=== PATIENT | female | born 1950 | race Caucasian/White ===

== ENCOUNTER 2018-08-12 10:05 | Observation (INO) ==
[2018-08-12] MEDS ORDERED: Isovue-370 500 ML BOTTLE IVP ONE (10:44)
[2018-08-12] MEDS ORDERED: 0.9 % Sodium Chloride 500 ML IVC ONE (10:47)
--- NOTE | 2018-08-12 11:23 | Emergency Department Note ---
Disposition Clinical Impression: Hyponatremia Pneumonia Qualifiers: Pneumonia type: due to unspecified organism Laterality: right Lung location: lower lobe of lung Qualified Code(s): J18.1 - Lobar pneumonia, unspecified organism Leukocytosis Qualifiers: Leukocytosis type: unspecified Qualified Code(s): D72.829 - Elevated white blood cell count, unspecified Disposition: Admitted As Inpatient Condition: Fair General Adult HPI - General Chief complaint: ED General Medical Stated complaint: coughing up blood Time Seen by Provider: 08/12/18 10:15 Source: patient, family Mode of arrival: ambulatory Limitations: no limitations Nursing Notes Reviewed: Yes Vital Signs Reviewed: Yes - History of Present Illness HPI Narrative: Ms. Corona is a 67-year old female who presents to the ED for evaluation of hemoptysis. She was evaluated in the ED early Friday morning, at which time she was diagnosed with pneumonia and started on antimicrobial therapy with levaquin. She reports that she has had right-sided low back pain that radiates up to her mid-back that is worse with cough. She states that she got up out of bed last night due to her back pain, and went to the couch. When she woke up this morning, she had a great deal of coughing with associated hemoptysis. She does have a plastic bag at the bedside, which contains multiple tissues with tammi blood present. She reports that her back pain has worsened and radiates into her right breast, particularly when coughing. She reports subjective chills, but de nies any overt fevers. She also reports abdominal pain associated with her cough, as well as increased sputum production. She denies any pain or swelling of the lower extremities, and has not recently had any long trips or prolonged immobilization. Pain Scale: 8 - Related Data Home Medications Medication Instructions Recorded Confirmed Amiloride/Hydrochlorothiazide 1 each PO DAILY 08/12/18 08/12/18 [Amiloride HCl-Hctz 5-50 mg Tab] Aspirin [Adult Aspirin] 81 mg PO DAILY 08/12/18 08/12/18 Calcium Carbonate/Vitamin D3 1 each PO DAILY 08/12/18 08/12/18 [Calcium 600 + Vit D Softgel] Carvedilol [Coreg] 6.25 mg PO BIDWM 08/12/18 08/12/18 Furosemide [Lasix] 10 mg PO DAILY 08/12/18 08/12/18 Glimepiride [Amaryl] 2 mg PO 0800 08/12/18 08/12/18 Lisinopril [Zestril] 5 mg PO DAILY 08/12/18 08/12/18 Multivitamin [Daily Multiple 1 each PO DAILY 08/12/18 08/12/18 Vitamin] [place]-3/Dha/Epa/Fish Oil [Fish Oil 2 each PO DAILY 08/12/18 08/12/18 1,000 mg Softgel] Omeprazole [PriLOSEC] 20 mg PO DAILY 08/12/18 08/12/18 Potassium Chloride [Klor-Con 10] 8 meq PO DAILY 08/12/18 08/12/18 Simvastatin [Zocor] 40 mg PO DAILY 08/12/18 08/12/18 Allergies Allergy/AdvReac Type Severity Reaction Status Date / Time cefdinir Allergy Diarrhea Verified 08/11/18 00:30 codeine Allergy Anaphylaxis Verified 08/11/18 00:30 All systems ED: reviewed and negative except as stated. Constitutional: Reports: chills. Denies: fever, weakness, weight change Eyes: Denies: eye pain, eye discharge, vision change Cardiovascular: Denies: chest pain, palpitations, dyspnea on exertion, edema, s yncope Respiratory: Reports: cough, hemoptysis, sputum production Gastrointestinal: Reports: abdominal pain. 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 history - Social History Smoking Status: Current every day smoker Smokeless Tobacco Status: No Alcohol use: Reports: occasionally Drug use: Reports: none Physical Exam - General Limitations: no limitations General appearance: alert, in no apparent distress - Head Head exam: atraumatic, normocephalic, normal inspection - Eye Eye exam: Present: normal appearance, PERRL, EOMI - ENT ENT exam: normal exam, normal oropharynx, mucous membranes moist - Neck Neck exam: Present: normal inspection, full ROM, trachea midline - Chest Chest inspection: Present: normal inspection, symmetric chest wall rise - Respiratory Respiratory exam: Present: other (coarse breath sounds bilaterally) - Expanded Respiratory Exam Location: decreased breath sounds: Right, Upper, Lower - Cardiovascular Cardiovascular exam: Present: regular rate, normal rhythm, normal heart sounds, +S1, +S2 - Abdominal Exam Abdominal exam: Present: soft, tenderness, hypoactive bowel sounds. Absent: distention, guarding, rebound, rigidity - Extremities Exam Extremities exam: Present: normal inspection, full ROM. Absent: tenderness, pedal edema - Back Exam Back exam: Present: normal inspection, full ROM, tenderness (Mild tenderness to palpation along the right thoracolumbar area) - Neurological Exam Neurological exam: Present: alert, oriented X3 - Psychiatric Psychiatric exam: Present: normal affect, normal mood - Skin Skin exam: Present: warm, dry, intact, normal color Course Vital Signs Temperature 98.5 F 08/12/18 10:06 Pulse Rate 114 08/12/18 10:06 Respiratory Rate 16 08/12/18 10:06 Blood Pressure 136/71 08/12/18 10:06 O2 Sat by Pulse Oximetry 99 08/12/18 10:06 Temperature 98.0 F 08/12/18 20:48 Pulse Rate 97 08/12/18 20:48 Respiratory Rate 16 08/12/18 20:48 Blood Pressure 118/63 08/12/18 20:48 O2 Sat by Pulse Oximetry 95 08/12/18 20:48 Oxygen Delivery Oxygen Delivery Room Air Medical Decision Making - [facility] Narrative Medical decision making narrative: Patient seen and evaluated at the bedside. Vital signs and recent medical records reviewed. At this time, concern for failed outpatient treatment of pneum onia vs. pulmonary embolism vs. underlying malignancy. We will obtain CTA of the chest to further evaluate. Disposition pending. CTA of the chest was concerning for a postobstructive pneumonia secondary to mass. Patient was admitted to the hospital with plan for bronchoscopy to further evaluate. Please see documentation of attending, Dr. Watts, for further ED course and disposition. - Lab Data Result diagrams: 08/12/18 11:05 08/12/18 11:04 Lab Results 08/12/18 08/12/18 08/12/18 Range/Units 11:04 11:04 11:05 WBC 23.4 H (4.3-11.1) K/mcL RBC 4.26 (3.82-4.97) M/mcL Hgb 12.4 (11.5-15.4) g/dL Hct 38.3 (35.3-44.9) % MCV 89.9 (83.0-100.0) fL MCH 29.1 (28.0-33.3) pg MCHC 32.4 (31.6-35.5) g/dL RDW 12.8 (11.5-14.5) % Plt Count 400 (140-400) K/mcL MPV 9.8 (9.4-12.4) fL PT (9.4-12.1) Seconds INR Sodium 126 L (136-145) mEq/L Potassium 3.8 (3.5-5.1) mEq/L Chloride 94 L (98-107) mEq/L Carbon Dioxide 24 (23-29) mEq/L BUN 16 (8-23) mg/dL Creatinine 0.59 L (0.60-1.20) mg/dL Est GFR ( Amer) > 60 (> 60) Est GFR (Non-Af Amer) > 60 (> 60) BUN/Creatinine Ratio 27 H (6-26) Glucose 339 H (70-105) mg/dL Calculated Osmolality 277 L (280-300) Lactic Acid 0.7 (0.5-2.2) mmol/L Calcium 8.8 (8.6-10.3) mg/dL 08/12/18 Range/Units 11:05 WBC (4.3-11.1) K/mcL RBC (3.82-4.97) M/mcL Hgb (11.5-15.4) g/dL Hct (35.3-44.9) % MCV (83.0-100.0) fL MCH (28.0-33.3) pg MCHC (31.6-35.5) g/dL RDW (11.5-14.5) % Plt Count (140-400) K/mcL MPV (9.4-12.4) fL PT 17.5 H (9.4-12.1) Seconds INR 1.6 Sodium (136-145) mEq/L Potassium (3.5-5.1) mEq/L Chloride (98-107) mEq/L Carbon Dioxide (23-29) mEq/L BUN (8-23) mg/dL Creatinine (0.60-1.20) mg/dL Est GFR ( Amer) (> 60) Est GFR (Non-Af Amer) (> 60) BUN/Creatinine Ratio (6-26) Glucose (70-105) mg/dL Calculated Osmolality (280-300) Lactic Acid (0.5-2.2) mmol/L Calcium (8.6-10.3) mg/dL
[2018-08-12 11:26] LABS: Hematocrit 38.3 % (35.3-44.9); Hemoglobin 12.4 g/dL (11.5-15.4); Mean Corpuscular HGB Conc 32.4 g/dL (31.6-35.5); Mean Corpuscular Hemoglobin 29.1 pg (28.0-33.3); Mean Corpuscular Volume 89.9 fL (83.0-100.0); Mean Platelet Volume 9.8 fL (9.4-12.4); Platelet Count 400 K/mcL (140-400); Red Blood Count 4.26 M/mcL (3.82-4.97); Red Cell Distribution Width 12.8 % (11.5-14.5)
[2018-08-12 11:44] LABS: BUN/Creatinine Ratio 27 (6-26); Blood Urea Nitrogen 16 mg/dL (8-23); Calcium 8.8 mg/dL (8.6-10.3); Carbon Dioxide 24 mEq/L (23-29); Chloride 94 mEq/L (98-107); Glucose 339 mg/dL (70-105); Osmolality,Calculated 277 (280-300); Potassium 3.8 mEq/L (3.5-5.1); Sodium 126 mEq/L (136-145); eGFR For Non-African Americans > 60 (> 60)
--- NOTE | 2018-08-12 11:55 | Emergency Department Note ---
Disposition Clinical Impression: Hyponatremia Pneumonia Qualifiers: Pneumonia type: due to unspecified organism Laterality: right Lung location: lower lobe of lung Qualified Code(s): J18.1 - Lobar pneumonia, unspecified organism Leukocytosis Qualifiers: Leukocytosis type: unspecified Qualified Code(s): D72.829 - Elevated white blood cell count, unspecified Disposition: Admitted As Inpatient Condition: Fair Time of Disposition: 13:38 General Adult HPI - General Chief complaint: ED General Medical Stated complaint: coughing up blood Time Seen by Provider: 08/12/18 10:15 Source: patient, family Mode of arrival: ambulatory Limitations: no limitations - History of Present Illness Pain Scale: 8 - Related Data Home Medications Medication Instructions Recorded Confirmed Amiloride/Hydrochlorothiazide 1 each PO DAILY 08/12/18 08/12/18 [Amiloride HCl-Hctz 5-50 mg Tab] Aspirin [Adult Aspirin] 81 mg PO DAILY 08/12/18 08/12/18 Calcium Carbonate/Vitamin D3 1 each PO DAILY 08/12/18 08/12/18 [Calcium 600 + Vit D Softgel] Carvedilol [Coreg] 6.25 mg PO BIDWM 08/12/18 08/12/18 Furosemide [Lasix] 10 mg PO DAILY 08/12/18 08/12/18 Glimepiride [Amaryl] 2 mg PO 0800 08/12/18 08/12/18 Lisinopril [Zestril] 5 mg PO DAILY 08/12/18 08/12/18 Multivitamin [Daily Multiple 1 each PO DAILY 08/12/18 08/12/18 Vitamin] [place]-3/Dha/Epa/Fish Oil [Fish Oil 2 each PO DAILY 08/12/18 08/12/18 1,000 mg Softgel] Omeprazole [PriLOSEC] 20 mg PO DAILY 08/12/18 08/12/18 Potassium Chloride [Klor-Con 10] 8 meq PO DAILY 08/12/18 08/12/18 Simvastatin [Zocor] 40 mg PO DAILY 08/12/18 08/12/18 Allergies Allergy/AdvReac Type Severity Reaction Status Date / Time cefdinir Allergy Diarrhea Verified 08/11/18 00:30 codeine Allergy Anaphylaxis Verified 08/11/18 00:30 Constitutional: Reports: chills. Denies: fever, weakness, weight change Eyes: Denies: eye pain, eye discharge, vision change Cardiovascular: Denies: chest pain, palpitations, dyspnea on exertion, edema, syncope Respiratory: Reports: cough, hemoptysis, sputum production Gastrointestinal: Reports: abdominal pain. 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 history - Social History Smoking Status: Current every day smoker Smokeless Tobacco Status: No Alcohol use: Reports: occasionally Drug use: Reports: none Physical Exam - General Limitations: no limitations General appearance: alert, in no apparent distress Course Vital Signs Temperature 98.5 F 08/12/18 10:06 Pulse Rate 114 08/12/18 10:06 Respiratory Rate 16 08/12/18 10:06 Blood Pressure 136/71 08/12/18 10:06 O2 Sat by Pulse Oximetry 99 08/12/18 10:06 Temperature 97.3 F L 08/12/18 19:49 Pulse Rate 89 08/12/18 19:49 Respiratory Rate 20 08/12/18 19:49 Blood Pressure 106/64 08/12/18 19:49 O2 Sat by Pulse Oximetry 98 08/12/18 19:49 Oxygen Delivery Oxygen Delivery Room Air Medical Decision Making - Medical Records Medical records reviewed: Yes I reviewed the patient's medical records. - Lab Data Lab results reviewed: Yes I reviewed the patient's lab results. Result diagrams: 08/12/18 11:05 08/12/18 11:04 Lab Results 08/12/18 08/12/18 08/12/18 Range/Units 11:04 11:04 11:05 WBC 23.4 H (4.3-11.1) K/mcL RBC 4.26 (3.82-4.97) M/mcL Hgb 12.4 (11.5-15.4) g/dL Hct 38.3 (35.3-44.9) % MCV 89.9 (83.0-100.0) fL MCH 29.1 (28.0-33.3) pg MCHC 32.4 (31.6-35.5) g/dL RDW 12.8 (11.5-14.5) % Plt Count 400 (140-400) K/mcL MPV 9.8 (9.4-12.4) fL PT (9.4-12.1) Seconds INR Sodium 126 L (136-145) mEq/L Potassium 3.8 (3.5-5.1) mEq/L Chloride 94 L (98-107) mEq/L Carbon Dioxide 24 (23-29) mEq/L BUN 16 (8-23) mg/dL Creatinine 0.59 L (0.60-1.20) mg/dL Est GFR ( Amer) > 60 (> 60) Est GFR (Non-Af Amer) > 60 (> 60) BUN/Creatinine Ratio 27 H (6-26) Glucose 339 H (70-105) mg/dL Calculated Osmolality 277 L (280-300) Lactic Acid 0.7 (0.5-2.2) mmol/L Calcium 8.8 (8.6-10.3) mg/dL 08/12/18 Range/Units 11:05 WBC (4.3-11.1) K/mcL RBC (3.82-4.97) M/mcL Hgb (11.5-15.4) g/dL Hct (35.3-44.9) % MCV (83.0-100.0) fL MCH (28.0-33.3) pg MCHC (31.6-35.5) g/dL RDW (11.5-14.5) % Plt Count (140-400) K/mcL MPV (9.4-12.4) fL PT 17.5 H (9.4-12.1) Seconds INR 1.6 Sodium (136-145) mEq/L Potassium (3.5-5.1) mEq/L Chloride (98-107) mEq/L Carbon Dioxide (23-29) mEq/L BUN (8-23) mg/dL Creatinine (0.60-1.20) mg/dL Est GFR ( Amer) (> 60) Est GFR (Non-Af Amer) (> 60) BUN/Creatinine Ratio (6-26) Glucose (70-105) mg/dL Calculated Osmolality (280-300) Lactic Acid (0.5-2.2) mmol/L Calcium (8.6-10.3) mg/dL - Radiology Data Radiology results reviewed: Yes I reviewed the patient's radiology results. Critical Care Time Critical Care Time: No Attestation Statement - Attestation Attestation: I examined this patient and my medical decision-making was reviewed with the CONTROL SYSTEMS SPECIALIST/PA/Advanced Practice Nurse/Resident Physician. I agree with the documented findings, disposition and treatment plan as described except to the extent set forth below. The patient does have a diagnosis of pneumonia was discharged in the hospital yesterday and I did review her record and now has pleuritic right-sided back pain radiating to her breasts and this is mid back and is somewhat tender with palpation but there is no sign of zoster or skin rash or swelling or erythema in this area. She does have hemoptysis or pulmonary embolism as well as untreated/inadequately treated pneumonia is another possibility as well as mass so a CTA is pending. Labs are also ordered. The patient will be admitted. 1155 I did review the EKG showing a paced rhythm with a rate of 110 beats per minutes and I did compare that to previous EKG. 1202 I did review the test results including CT showing a lobar pneumonia and a possible obstruction proximal and I did speak with the hospitalist Dr. Maldonado who accepts the patient for admission and I will also consult pulmonary and they are paged at this time. The patient is started on Zosyn and vancomycin for treatment failure pneumonia and will be admitted. Also does have hyponatremia. [address] Escamilla who will consult 1342 Did go back and speak with the patient again and informed her of the admission decision and the concern for possible malignancy and the pulmonary consult. 1517
[2018-08-12] MEDS ORDERED: Piperacillin/Tazobactam 4.5 GM in D5% in Water (Mini-Bag+) 100 ML IVPB ONE (13:01)
[2018-08-12] MEDS ORDERED: Piperacillin/Tazobactam 3.375 GM in 0.9 % Sodium Chloride Mini Bag 100 ML IVPB ONE (13:22)
--- NOTE | 2018-08-12 13:53 | Pulmonology Consult Note ---
Date of Encounter: 08/12/18 Time of Encounter: 13:52 Assessment and Plan (1) Hemoptysis Current Visit: Yes Status: Acute In conclusion this is a very pleasant 59-year-old woman who presented with hemoptysis secondary to pneumonia. I reviewed her CT scan it is unclear if she could have endobronchial lesion in the right lower lobe with postobstructive a telectasis/pneumonia or this could be mucus plugging or some other obstructive process given her smoking history she is at increased risk for lung cancer and recommend direct visualization. Hemoptysis Is submassive in nature at this time A bronchoscopy is recommended. The procedure , risks, benefits, complications, and expected outcomes have been reviewed. Benefits of diagnosis, as well as risks to include bleeding, infection, pneumothorax which may require surgical intervention, and in a small population. The patient is aware that sometimes test is nondiagnostic. Discussed with patient and agrees to proceed. In addition patient should be covered for typical community acquired organisms and recommend MRSA and nasal swab positive can start her on vancomycin as well. She does be treated for COPD exacerbation recommend one-time dose of Solu-Medrol to 125 mg followed by IV Solu-Medrol 40 mg 3 times a day. Has a known history of diabetes which is controlled with medicine but not insulin -recommend close monitoring and treatment of this by primary medicine service while on systemic glucocorticoids. Schedule bronchodilators DuoNeb's every 4 hours with every one hour albuterol as needed. Start Symbicort 160/4.52 puffs twice a day Blood cultures should be obtained and sputum culture if possible that also send for urine strep Legionella antigens. Check the INR and keep patient nothing by mouth. She does have evidence of hyponatremia and this may be part of a paraneoplastic syndrome if there is evidence of endobronchial lesion/cancer otherwise this may be related to infectious process and SIADH from vasopressin stimulation recommend further evaluation by primary team including urine and serum osmolalities TSH AND cortisol Thank you for the consultation (2) Pneumonia Current Visit: Yes Status: Acute Qualifiers: Pneumonia type: due to unspecified organism Laterality: right Lung location: lower lobe of lung Qualified Code(s): J18.1 - Lobar pneumonia, unspecified organism (3) COPD exacerbation Current Visit: Yes Status: Acute (4) Tobacco abuse Current Visit: Yes Status: Acute History of Present Illness Consult date: 08/12/18 Requesting physician: Ash Watts Reason for consult: pneumonia Chief complaint: Coughing Up Blood History of present illness: I was called to evaluate Ms. ramos for hemoptysis. The patient is a pleasant 67-year-old woman with a past medical history of tobacco abuse and COPD. She had presented within the last 2 days to the emergency department complaining of chest pain chest x-ray was notable for pneumonia and she was stable and discharg ed from the emergency department on uin she returned today after she had had increasing pain and cough that was productive of blood. She states that she had about a tablespoon of bright red blood and that she had several bouts 4 episodes in total of blood mixed with sputum. This was earlier this morning and she has had no further episodes since. Patient's is a long-time heavy smoker 1 pack a day since around the age of 19 no personal history of malignancy no family history of lung malignancy and no exposure to exotic pets. No sick contacts travel drug abuse or ethanol abuse. Denies any nausea vomiting diarrhea dizziness new weakness or slurred speech. Denies any epistaxis hematuria or blood from the stool or dark stools Past Med Surg Social Fam HX - Past Medical History Medical history: diabetes, hyperlipidemia, hypertension Additional medical history: irregular heart beat Psychiatric history: no psych history - Social History Smoking Status: Current every day smoker Smokeless Tobacco Status: No Alcohol use: occasionally Drug use: none - Family History Mother History Unknown: Yes Medications and Allergies Amiloride/Hydrochlorothiazide [Amiloride HCl-Hctz 5-50 mg Tab] 1 each PO DAILY 08/12/18 [History] Aspirin [Adult Aspirin] 81 mg PO DAILY 08/12/18 [History] Calcium Carbonate/Vitamin D3 [Calcium 600 + Vit D Softgel] 1 each PO DAILY 08/12/18 [History] Carvedilol [Coreg] 6.25 mg PO BIDWM 08/12/18 [History] Furosemide [Lasix] 10 mg PO DAILY 08/12/18 [History] Glimepiride [Amaryl] 2 mg PO 0800 08/12/18 [History] Lisinopril [Zestril] 5 mg PO DAILY 08/12/18 [History] Multivitamin [Daily Multiple Vitamin] 1 each PO DAILY 08/12/18 [History] [place]-3/Dha/Epa/Fish Oil [Fish Oil 1,000 mg Softgel] 2 each PO DAILY 08/12/18 [History] Omeprazole [PriLOSEC] 20 mg PO DAILY 08/12/18 [History] Potassium Chloride [Klor-Con 10] 8 meq PO DAILY 08/12/18 [History] Simvastatin [Zocor] 40 mg PO DAILY 08/12/18 [History] Allergy/AdvReac Type Severity Reaction Status Date / Time cefdinir Allergy Diarrhea Verified 08/11/18 00:30 codeine Allergy Anaphylaxis Verified 08/11/18 00:30 All Systems: The remainder of the systems were reviewed and are negative Physical Examination Vital Signs: Vital Signs, Last 4 Hours Temp Pulse Resp BP Pulse Ox 08/12/18 11:06 103 16 134/66 95 08/12/18 10:06 98.5 F 114 16 136/71 99 General appearance: no acute distress ENT: oropharynx moist Neck: supple Auscultation: bilateral: wheezes (Expiratory wheezes noted bilaterally) Cardiovascular: regular rate and rhythm Gastrointestinal: normoactive bowel sounds, soft, non-tender Integumentary: normal Extremities: no cyanosis, no edema, no clubbing Musculoskeletal: no deformities normal mental status, non-focal exam mood appropriate Results - Laboratory Findings CBC and BMP: 08/12/18 11:05 08/12/18 11:04 Abnormal lab findings: Abnormal lab results WBC 23.4 K/mcL (4.3-11.1) H 08/12/18 11:05 Sodium 126 mEq/L (136-145) L 08/12/18 11:04 Chloride 94 mEq/L (98-107) L 08/12/18 11:04 Creatinine 0.59 mg/dL (0.60-1.20) L 08/12/18 11:04 BUN/Creatinine Ratio 27 (6-26) H 08/12/18 11:04 Glucose 339 mg/dL (70-105) H 08/12/18 11:04 Calculated Osmolality 277 (280-300) L 08/12/18 11:04 - Microbiology Findings Microbiology Findings: Microbiology, Last 48 Hours 08/12/18 11:13 Influenza Types A,B Antigen - Final Nasopharyngeal 08/12/18 11:04 Blood Culture - Preliminary Peripheral Venipuncture Culture is incubating and being continuously monitored for growth. Final report to follow. 08/12/18 11:04 Blood Culture - Preliminary Peripheral Venipuncture Culture is incubating and being continuously monitored for growth. Final report to follow. - Diagnostic Findings Chest x-ray: report reviewed, image reviewed - Clinical Findings Intake & Output: Intake & Output 08/11/18 08/12/18 08/12/18 23:59 07:59 15:59 Weight 69.853 kg Consult Discharge Plan - Plan
[2018-08-12] MEDS ORDERED: Ibuprofen 600 MG TABLET PO ONE (15:18)
[2018-08-12] MEDS ORDERED: Acetaminophen 325 MG TABLET PO PRN (15:36)
[2018-08-12] MEDS ORDERED: Naloxone 0.4 MG/ML INJ IVP PRN (15:36)
[2018-08-12] MEDS ORDERED: D5% in Water 1,000 ML IVC PRN (15:41)
[2018-08-12] MEDS ORDERED: Dextrose Gel 15 GM/37.5 ML TUBE PO PRN ×2 (15:41)
[2018-08-12] MEDS ORDERED: *HR* Dextrose 50 % in Water (Syg) 50 ML SYRINGE IVP PRN (15:41)
--- NOTE | 2018-08-12 15:44 | Internal Med History&Physical ---
Date of Encounter: 08/12/18 Time of Encounter: 15:00 Internal Medicine - H&P: HPI Chief complaint: Hemoptysis Admitted From: Home Plans for Post Hospital Care: Home History of present illness: Ms. Corona is a 67 year old female present to ER for hemoptysis since this morning. Past medical history is significant for diabetes, hypertension, hyperlipidemia, S/P PPM/AICD placement. Patient has right-sided pleural like chest pain over about one week. Patient also has cough with clear sputum for about 1 week. Patient denies fever, nausea, or vomiting. Patient has no shortness of breath. Patient came to ER yesterday and was considered pneumonia and given by mouth Levaquin. Since this morning, she has noticed blood in sputum, which is blood mixed with sputum. Patient denies on any anticoagulations except baby aspirin. Patient came to the emergency room again, CTA has been done, negative for PE but suspect right lung mass. Patient was admitted for further management. Past Med Surg Social Fam HX - Past Medical History Medical history: diabetes, hyperlipidemia, hypertension Additional medical history: irregular heart beat Psychiatric history: no psych history - Social History Smoking Status: Current every day smoker Smokeless Tobacco Status: No Alcohol use: occasionally Drug use: none - Family History Mother History Unknown: Yes Internal Medicine - H&P: Meds Amiloride/Hydrochlorothiazide [Amiloride HCl-Hctz 5-50 mg Tab] 1 each PO DAILY 08/12/18 [History] Aspirin [Adult Aspirin] 81 mg PO DAILY 08/12/18 [History] Calcium Carbonate/Vitamin D3 [Calcium 600 + Vit D Softgel] 1 each PO DAILY 08/12/18 [History] Carvedilol [Coreg] 6.25 mg PO BIDWM 08/12/18 [History] Furosemide [Lasix] 10 mg PO DAILY 08/12/18 [History] Glimepiride [Amaryl] 2 mg PO 0800 08/12/18 [History] Lisinopril [Zestril] 5 mg PO DAILY 08/12/18 [History] Multivitamin [Daily Multiple Vitamin] 1 each PO DAILY 08/12/18 [History] [place]-3/Dha/Epa/Fish Oil [Fish Oil 1,000 mg Softgel] 2 each PO DAILY 08/12/18 [History] Omeprazole [PriLOSEC] 20 mg PO DAILY 08/12/18 [History] Potassium Chloride [Klor-Con 10] 8 meq PO DAILY 08/12/18 [History] Simvastatin [Zocor] 40 mg PO DAILY 08/12/18 [History] Allergy/AdvReac Type Severity Reaction Status Date / Time cefdinir Allergy Diarrhea Verified 08/11/18 00:30 codeine Allergy Anaphylaxis Verified 08/11/18 00:30 All Systems PM: A 10-system review of systems was performed and is negative for pertinent findings except as documented above in the HPI. - Constitutional Vitals: Temp Pulse Resp BP Pulse Ox 98.5 F 101 18 129/55 98 08/12/18 10:06 08/12/18 15:12 08/12/18 15:12 08/12/18 15:12 08/12/18 15:12 Exam: Pt is AAO x 3, in NAD HEENT: NC/AT, PERRL Neck: Supple, no JVD, no LAD Lungs: CTA b/l Heart: S1S2, RRR Abd: Soft, nontender, BS present Ext: ROM wnl, no pedal edema Neuro: No focal deficit Internal Med - H&P Results - Labs CBC & Chem 7: 08/12/18 11:05 08/12/18 11:04 Labs: Short CBC 08/12/18 Range/Units 11:05 WBC 23.4 H (4.3-11.1) K/mcL Hgb 12.4 (11.5-15.4) g/dL Hct 38.3 (35.3-44.9) % Plt Count 400 (140-400) K/mcL [facility] 08/12/18 11:04 Sodium 126 L Potassium 3.8 Chloride 94 L Carbon Dioxide 24 BUN 16 Creatinine 0.59 L Glucose 339 H Calcium 8.8 - Impressions ITS Impressions Chest CTA 08/12/18 10:46 IMPRESSION: 1. No evidence of pulmonary embolism. 2. Complete atelectasis and consolidation of the right lower lobe. The appearance as above is suggestive of an infiltrative right perihilar mass with a possible endoluminal filling defect in the right bronchus intermedius. Consider further evaluation with endoscopy. 3. Trace right pleural effusion, which may be partially loculated. 4. Mild right hilar lymphadenopathy. D/ 08/12/2018 13:03:11 Darinel Hirsch MD / [email or web address] Interpreting Provider: Darinel Hirsch MD - Assessment and Plan (1) DVT prophylaxis Current Visit: Yes Status: Acute Assessment and plan: EPCDs, hold heparin for possible bronchoscope (2) Diabetes mellitus Current Visit: Yes Status: Acute Assessment and plan: Place patient on sliding scale insulin coverage Qualifiers: Diabetes mellitus type: type 2 Diabetes mellitus usp insulin use: without termite technician use Diabetes mellitus complication status: without complication Qualified Code(s): E11.9 - Type 2 diabetes mellitus without complications (3) Hypertension Current Visit: Yes Status: Acute Assessment and plan: Continue home medications Qualifiers: Hypertension type: essential hypertension Qualified Code(s): I10 - Essential (primary) hypertension (4) Hemoptysis Current Visit: Yes Status: Acute Assessment and plan: CTA has been done. Patient has pneumonia of right lower lobe. Suspect lung mass. It is likely considering patient long history of smoking. - Consult pulmonology - Patient may need bronchoscope, keep nothing by mouth from midnight. Follow pulmonology further recommendations. (5) Hyponatremia Current Visit: Yes Status: Acute Assessment and plan: Sodium 126. Highly suspect SIACH caused by lung malignancy. Patient was placed on IV saline. Place her on by mouth sodium pills as well (6) Pneumonia Current Visit: Yes Status: Acute Assessment and plan: Patient denies recent hospitalization. CAP vs postop obstructive pneumonia. - Continue IV Levaquin - Legionella and strep pneumo Ags - Influenza test negative in the emergency room - Will follow pulmonology further recommendation Qualifiers: Pneumonia type: due to unspecified organism Laterality: right Lung location: lower lobe of lung Qualified Code(s): J18.1 - Lobar pneumonia, unspecified organism - Time Spent With Patient Total time spent is greater than 50% in coordination of care (as documented) at patient's floor/unit and/or counseling patient: 40 minutes Greater than 35 minutes
[2018-08-12] MEDS ORDERED: 0.9 % Sodium Chloride 1,000 ML IVC SCH (15:45)
[2018-08-12 15:53] LABS: INR 1.6; Prothrombin Time 17.5 Seconds (9.4-12.1)
[2018-08-12] MEDS ORDERED: methylPREDNISolone 125 MG/2 ML VIAL IVP ONE (16:01)
--- NOTE | 2018-08-12 16:17 | Anesthesia Evaluation PreOp ---
<Clement Hutson - Last Filed: 08/12/18 16:52> Date of Encounter: 08/12/18 Time of Encounter: 16:13 - Past History Planned Operation: Bronchoscopy Cardiac History: Denies any Significant Hx (Hypertension Diabetes Hypercholesteremia History of Smoking Years 40 Packs 1 Family History of CAD History of CAD/PTCA Pacer/ICD Implant), HTN, Hyperlipidemia, Pacemaker/ICD (AICD interogated Today) Pulmonary History: Smoker, SAJAN Dx (CPAP 7), Other ([place]) Other Medical History: Diabetes Type II, Other (Hyponatremia) : No Alcohol Use: occasionally Drug use: none Medications and Allergies Amiloride/Hydrochlorothiazide [Amiloride HCl-Hctz 5-50 mg Tab] 1 each PO DAILY 08/12/18 [History] Aspirin [Adult Aspirin] 81 mg PO DAILY 08/12/18 [History] Calcium Carbonate/Vitamin D3 [Calcium 600 + Vit D Softgel] 1 each PO DAILY 08/12/18 [History] Carvedilol [Coreg] 6.25 mg PO BIDWM 08/12/18 [History] Furosemide [Lasix] 10 mg PO DAILY 08/12/18 [History] Glimepiride [Amaryl] 2 mg PO 0800 08/12/18 [History] Lisinopril [Zestril] 5 mg PO DAILY 08/12/18 [History] Multivitamin [Daily Multiple Vitamin] 1 each PO DAILY 08/12/18 [History] [place]-3/Dha/Epa/Fish Oil [Fish Oil 1,000 mg Softgel] 2 each PO DAILY 08/12/18 [History] Omeprazole [PriLOSEC] 20 mg PO DAILY 08/12/18 [History] Potassium Chloride [Klor-Con 10] 8 meq PO DAILY 08/12/18 [History] Simvastatin [Zocor] 40 mg PO DAILY 08/12/18 [History] Allergy/AdvReac Type Severity Reaction Status Date / Time cefdinir Allergy Diarrhea Verified 08/11/18 00:30 codeine Allergy Anaphylaxis Verified 08/11/18 00:30 - Meds/Allergy Pre-op Review Medications Reviewed: Yes Allergies Reviewed: Yes Beta Blockers on Current Med List: Yes If Beta Blockers taken, Date/Time (Last Dose taken): 16:10 08/12/2018 Anesthesia Results - Labs 08/12/18 11:05 08/12/18 11:04 - Imaging Additional studies: Echocardiogram Name: Evon Corona Date of Study: 03/05/2017 Date: 1950 Ht: 66.0 in Medical Record#: [id number] Age: 66 Wt: 160.0 lb Gender: Female BSA: 1.82 Order #: [id number] Location: [facility] OP Room #: Reading Physician: Mihaela Fonseca DO Pourer: Ashleigh Medina Ordering Physician: Catrachita Diaz MD, [facility] Primary Physician: Indications: nonischemic cardiomyopathy, LBBB, Coronary artery disease History Hypertension Diabetes Hypercholesteremia History of Smoking Years 40 Packs 1 Family History of CAD History of CAD/PTCA Pacer/ICD Implant 11/22/13 a Previous Echo was performed. Measurements: BP: 142/ 68 2D Normal Values RVIDd: 3.00 cm <2.7 cm IVSd: 1.60 cm 0.6 - 1.0 cm LVIDd: 3.30 cm 3.7 - 5.6 cm LVPWd: 1.20 cm 0.6 - 1.1 cm LVIDs: 2.60 cm 1.5 - 3.6 cm AO: 2.10 cm < 4.0 cm LA: 3.40 cm 2.0 - 4.0cm %FS: 21.20 cm >25 % LA volume: 27 Mitral Valve Peak E: .53 m/sec Peak A: .90 m/sec E/A Ratio: 0.6 Peak E' Lat Chalino: 6.04 cm/s Peak E' Med Chal[place]: 4.78 cm/s E/E' Lat Ratio: 8.7 E/E' Med Ratio: 11 Tricuspid Valve TV Regurg Peak Grad: 36.00mmHg TV Regurg Peak Chalino: 3.00m/sec Updated by Mihaela Fonseca on 03/05/2017 4:08:42 PM electronically signed on 03/05/2017 4:09:39 PM with status of Final Wall Motion Winkler: 1=Normal, 2=Hypokinesis, 3=Akinesis, 4=Dyskinesis, 5=Aneurysmal, 6=Hyperkinetic, X=Not Visualized (Blank)=Missing [id number].pdf^ProVation^FT^PDF EV/EV echocardiogram Impressions: LVEF 55%. Atypical septal motion consistent with bundle branch block. Asymmetric basal septal hypertrophy. No LVOTO. Mild left ventricular diastolic dysfunction. Normal right ventricular structure and function. Mild tricuspid regurgitation. Mild pulmonary hypertension. Anesthesia Exam Vital Signs/O2 Sat, Most Current Temp Pulse Resp BP Pulse Ox 98.5 F 101 18 143/78 98 08/12/18 10:06 08/12/18 15:12 08/12/18 15:48 08/12/18 15:48 08/12/18 15:12 Anesthesia Assess/Plan ASA Score: 3 Level of consciousness: Cooperative Anesthetic Plan: General Autologous Blood: Yes Monitoring Plan: Standard Monitors Recovery Plan: PACU <Margo Vaca - Last Filed: 08/12/18 18:24> Date of Encounter: 08/12/18 - Past History COVER MARKER History: Denies Any Significant HX Anesthesia Results - Labs 08/12/18 11:05 08/12/18 11:04 Anesthesia Exam Weight: 74 kg NPO (# of Hours): 6 hrs ... light meal - HEENT Pupil (Motor): Pupils equal, EOMI Mallampati: III Teeth: Normal Oral Opening: Greater than 3 (short TM distance) - COVER MARKER LOC: Oriented - Cardiac Rhythm: Regular Murmur: None - Pulmonary Breath Sounds: bilateral Clear (diminished breath sounds bilaterally) Respiratory Effort: Symmetrical
[2018-08-12] MEDS: Insulin LISPRO 300 UNITS/3 ML VIAL SQ SCH (16:27)
[2018-08-12] MEDS: Levofloxacin 750 MG/150 ML 750 MG/150 ML BAG IVPB SCH (16:27)
[2018-08-12] MEDS ORDERED: *HR* Propofol 200 MG/20 ML VIAL IVP ONE (16:51)
[2018-08-12] MEDS ORDERED: Propofol 500 MG/50 ML INFUS..BTL ONE (16:51)
[2018-08-12] MEDS ORDERED: Lidocaine -MPF 2% 2 ML VIAL ONE (16:55)
[2018-08-12] MEDS ORDERED: Lidocaine -MPF 4% 5 ML AMPUL ONE (16:55)
[2018-08-12] MEDS ORDERED: Ondansetron 4 MG/2 ML VIAL ONE (16:55)
[2018-08-12] MEDS ORDERED: Lidocaine Viscous Oral Soln 15 ML SOLUTION ONE (17:24)
[2018-08-12] MEDS ORDERED: Dexamethasone 4 MG/ML VIAL ONE (18:38)
[2018-08-12] MEDS ORDERED: *HR* EPINEPHrine 1 MG/10 ML SYRINGE INTRATRACH PRN (19:04)
--- NOTE | 2018-08-12 19:07 | Event Note ---
Date of Encounter: 08/12/18 Time of Encounter: 19:05 Status post bronchoscopy with the fungating tumor noted in the right bronchus intermedius. Biopsies were obtained as this is suspicious for malignancy patient had bleeding after procedure which terminated with use of topical epinephrine and thrombin. She is at high risk for further hemoptysis and even the massive hemoptysis over the next 12-24 hours. If coughs up more than 250 mL of bright red blood at any one time or over the next 12 hours she should be moved to the ICU and would likely need intubation. Treatment at this point would be thoracic surgery consultation or interventional radiology for embolization. We will follow-up on biopsy results which should be hopefully back in the next 48-72 hours.
[2018-08-12] MEDS ORDERED: *HR* EPINEPHrine 1 MG/10 ML SYRINGE ONE (19:09)
[2018-08-12] MEDS ORDERED: Albuterol 2.5 MG/3 ML NEBULIZER ONE (19:13)
[2018-08-12] MEDS ORDERED: Albuterol 2.5 MG/3 ML NEBULIZER IH ONE (19:14)
[2018-08-12] MEDS ORDERED: Dexamethasone 10 MG/ML VIAL PO ONE (19:27)
[2018-08-12] MEDS ORDERED: Benzonatate 100 MG CAPSULE PO PRN (19:29)
--- NOTE | 2018-08-12 19:54 | Anesthesia Evaluation Post Op ---
Date of Encounter: 08/12/18 Time of Encounter: 19:53 - Vital Signs Vital Signs: Last Vital Signs Temp 97.3 F L 08/12/18 19:29 Pulse 81 08/12/18 19:39 Resp 20 08/12/18 19:39 BP 103/57 08/12/18 19:39 Pulse Ox 99 08/12/18 19:39 - Lungs Lungs: Clear Ascult./Percussion - Airway Airway: Non-obstructed - Cardiovascular Regular Rate - Mental Status Mental Status: Alert & Oriented, Answers Appropriately - Pain Pain Scale: 2 - Nausea Vomiting Nausea Vomiting: Not Present - Hydration Hydration: NPO - Discharge PostOp Status: Transfer Patient to floor
[2018-08-12] MEDS ORDERED: Insulin LISPRO 300 UNITS/3 ML VIAL SQ SCH (21:00)
[2018-08-12 23:13] LABS: Source of Body Fluid RIGHT LOWER LOBE LUN
[2018-08-12 23:14] LABS: Appearance of Body Fluid Cloudy (Clear); Volume of Body Fluid 7 mL
[2018-08-12 23:36] LABS: Sodium, Urine 16.1 mEq/L
[2018-08-13 06:00] LABS: Basophils % 0.1 %; Hematocrit 33.8 % (35.3-44.9); Hemoglobin 11.3 g/dL (11.5-15.4); Immature Granulocytes % 0.8 % (0-4); Lymphocytes # 1.2 K/mcL (0.6-4.6); Lymphocytes % 6.3 %; Mean Corpuscular HGB Conc 33.4 g/dL (31.6-35.5); Mean Corpuscular Hemoglobin 28.7 pg (28.0-33.3); Mean Corpuscular Volume 85.8 fL (83.0-100.0); Monocytes # 0.3 K/mcL (0.0-1.3); Monocytes % 1.4 %; Neutrophils # 17.2 K/mcL (1.6-8.9); Platelet Count 473 K/mcL (140-400); Red Blood Count 3.94 M/mcL (3.82-4.97); Red Cell Distribution Width 12.6 % (11.5-14.5); Segmented Neutrophils % 91.4 %
[2018-08-13 06:22] LABS: BUN/Creatinine Ratio 29 (6-26); Blood Urea Nitrogen 18 mg/dL (8-23); Calcium 8.8 mg/dL (8.6-10.3); Carbon Dioxide 25 mEq/L (23-29); Chloride 98 mEq/L (98-107); Glucose 372 mg/dL (70-105); Magnesium 1.5 mg/dL (1.6-2.6); Osmolality,Calculated 295 (280-300); Potassium 3.8 mEq/L (3.5-5.1); Sodium 134 mEq/L (136-145); eGFR For Non-African Americans > 60 (> 60)
--- NOTE | 2018-08-13 06:36 | Pulmonology Progress Note ---
Date of Encounter: 08/13/18 Time of Encounter: 06:36 Assessment and Plan (1) Hemoptysis Current Visit: Yes Status: Acute This pleasant 67yo woman presented for increasing cough shortness of breath or chest pain and hemoptysis. CT scan was concerning for postobstructive pneumonia underwent bronchoscopy yesterday unfortunately this was notable for a malignant appearing lesion in the right bronchus intermedius. Given her smoking history very strong likelihood of primary lung cancer (NSCLC). I went over the findings with the patient and her in the room today and also explained that was only able to get to biopsies because of the amount of bleeding that was noted from the tumor hopefully this will be enough to make a diagnosis. I am hopeful that we can have a tissue diagnosis by tomorrow if diagnosis is still unclear after these biopsies have been evaluated I will refer to our interventional correctional officer lieutenant to repeat bronchoscopy and consider tumor debulking and further biopsies at that time. Complete staging can be done as an outpatient she may still end up being a surgical candidate. The standpoint of hemoptysis this appears to have resolved this time but she is at increased risk for having serious hemoptysis given the endobronchial lesion. 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 No further episodes of hemoptysis she was using codeine cough suppressant that is helping quite a bit in fact she feels nearing her baseline. Objective PUL Vital signs: Last Vital Signs Temp 97.7 F 08/13/18 04:05 Pulse 88 08/13/18 04:05 Resp 16 08/13/18 04:05 BP 123/78 08/13/18 04:05 Pulse Ox 94 08/13/18 04:05 General appearance: no acute distress ENT: oropharynx moist Neck: supple Auscultation: bilateral: wheezes (faint expiratory wheezes) Cardiovascular: regular rate and rhythm Gastrointestinal: normoactive bowel sounds, soft, non-tender Integumentary: normal Extremities: no cyanosis, no edema, no clubbing Musculoskeletal: no deformities normal mental status, non-focal exam mood appropriate Results - Laboratory Findings CBC and BMP: 08/13/18 05:37 08/13/18 05:37 PT/INR, D-dimer PT 17.5 Seconds (9.4-12.1) H 08/12/18 11:05 Abnormal lab findings: Abnormal lab results WBC 18.8 K/mcL (4.3-11.1) H 08/13/18 05:37 Hgb 11.3 g/dL (11.5-15.4) L 08/13/18 05:37 Hct 33.8 % (35.3-44.9) L 08/13/18 05:37 Plt Count 473 K/mcL (140-400) H 08/13/18 05:37 Neutrophils # 17.2 K/mcL (1.6-8.9) H 08/13/18 05:37 PT 17.5 Seconds (9.4-12.1) H 08/12/18 11:05 Sodium 134 mEq/L (136-145) L 08/13/18 05:37 BUN/Creatinine Ratio 29 (6-26) H 08/13/18 05:37 Glucose 372 mg/dL (70-105) H 08/13/18 05:37 POC Glucose 254 mg/dL (70-99) H 08/12/18 20:59 Magnesium 1.5 mg/dL (1.6-2.6) L 08/13/18 05:37 Urine Osmolality 230 mOsm/kg (300-1090) L 08/12/18 23:00 Fluid Appearance Cloudy (Clear) A 08/12/18 19:13 - Microbiology Findings Microbiology Findings: Microbiology, Last 48 Hours 08/12/18 23:00 Legionella Antigen - Final Urine,Random-Not Preferred Streptococcus pneumoniae Antigen (M - Final 08/12/18 19:13 Gram Stain - Final Right Lower Lobe Lung 08/12/18 11:13 Influenza Types A,B Antigen - Final Nasopharyngeal 08/12/18 11:04 Blood Culture - Preliminary Peripheral Venipuncture Culture is incubating and being continuously monitored for growth. Final report to follow. 08/12/18 11:04 Blood Culture - Preliminary Peripheral Venipuncture Culture is incubating and being continuously monitored for growth. Final report to follow. - Clinical Findings Intake & Output: Intake & Output 08/12/18 08/12/18 08/13/18 15:59 23:59 07:59 Intake Total 750 / 750 60 / 60 0 / 0 Output Total 400 / 400 1300 / 1300 Balance 750 / 750 -340 / -340 -1300 / -1300 Weight 69.853 kg 74 kg 74.2 kg Consult Discharge Plan - Plan Referrals: Zion Moss MD [Primary Care Provider] -
[2018-08-13 06:38] LABS: Thyroid Stimulating Hormone 0.19 mcIU/mL (0.340-5.600)
[2018-08-13] MEDS ORDERED: NON-FORMULARY MEDICATION 1 EACH EACH (Calcium Carbonate/Vitamin D3 [Calcium 600 + Vit D So PO SCH (09:00)
[2018-08-13] MEDS: Furosemide 20 MG TABLET PO SCH (10:03)
[2018-08-13] MEDS: Cholecalciferol (D-3) 1,000 UNIT TABLET PO SCH (10:03)
[2018-08-13] MEDS: Insulin LISPRO 300 UNITS/3 ML VIAL SQ SCH ×3 (10:04→16:55)
[2018-08-13] MEDS: Multivit/Ca/Min/Fe/FA 1 TAB TABLET PO SCH (10:04)
[2018-08-13] MEDS ORDERED: D5% in Water 1,000 ML IVC PRN (12:30)
[2018-08-13] MEDS ORDERED: Insulin DETEMIR 100 UNIT/ML X5UNITS SQ ONE (15:42)
--- NOTE | 2018-08-13 15:50 | Internal Med Progress Note ---
Hospitalist Progress Note - Encounter Date of Encounter: 08/13/18 Time of Encounter: 09:00 - Subjective Interval History: Pt has no further hemoptysis. Mild cough. No fever. - Exam Vitals: Temp Pulse Resp BP Pulse Ox 97.7 F 92 17 119/73 95 08/13/18 04:05 08/13/18 12:00 08/13/18 12:00 08/13/18 12:00 08/13/18 12:00 Exam: Pt is AAO x 3, in NAD HEENT: NC/AT, PERRL Neck: Supple, no JVD, no LAD Lungs: CTA b/l Heart: S1S2, RRR Abd: Soft, nontender, BS present Ext: ROM wnl, no pedal edema Neuro: No focal deficit - Assessment and Plan (1) DVT prophylaxis Current Visit: Yes Status: Acute Assessment and Plan: EPCDs, hold heparin b/o hemoptysis (2) Diabetes mellitus Current Visit: Yes Status: Acute Assessment and Plan: Place patient on sliding scale insulin coverage, pt also has steroid induced hyperglycemia, will add basal insulin. (3) Hypertension Current Visit: Yes Status: Acute Assessment and Plan: Continue home medications (4) Hemoptysis Current Visit: Yes Status: Acute Assessment and Plan: CTA has been done. Patient has pneumonia of right lower lobe. Suspect lung mass. It is likely considering patient long history of smoking. - Pulmonology consult appreciated. Had bronchoscope. Suspect malignancy. Biopsy sent. Pathology result is pending. - Continue closely monitor patient for further hemoptysis. (5) Hyponatremia Current Visit: Yes Status: Acute Assessment and Plan: Sodium improvedto 134. Highly suspect SIACH caused by lung malignancy. Cont flori se monitoring. (6) Pneumonia Current Visit: Yes Status: Acute Assessment and Plan: Patient denies recent hospitalization. CAP vs postop obstructive pneumonia. - Continue IV Levaquin - Legionella and strep pneumo Ags negative - Influenza test negative in the emergency room - Will follow pulmonology further recommendation, per pulmonology, will add prednisone by mouth. - Time Spent with Patient Total time spent is greater than 50% in coordination of care (as documented) at patient's floor/unit and/or counseling patient: 30 minutes 25 - 35 minutes Plan of Care Discussed with: patient Internal Medicine: Result - Labs CBC & Chem 7: 08/13/18 05:37 08/13/18 05:37 Labs: Short CBC 08/13/18 Range/Units 05:37 WBC 18.8 H (4.3-11.1) K/mcL Hgb 11.3 L (11.5-15.4) g/dL Hct 33.8 L (35.3-44.9) % Plt Count 473 H (140-400) K/mcL Neutrophils # 17.2 H (1.6-8.9) K/mcL BMP 08/13/18 05:37 Sodium 134 L Potassium 3.8 Chloride 98 Carbon Dioxide 25 BUN 18 Creatinine 0.62 Glucose 372 H Calcium 8.8 - ABG Interpretation ABG results: PT/INR, D-dimer PT 17.5 Seconds (9.4-12.1) H 08/12/18 11:05 Consult Discharge Plan - Plan Referrals: Zion Moss MD [Primary Care Provider] - (2) Diabetes mellitus Qualifiers: Diabetes mellitus type: type 2 Diabetes mellitus chcf insulin use: without intermediate accountant use Diabetes mellitus complication status: without complication Qualified Code(s): E11.9 - Type 2 diabetes mellitus without complications (3) Hypertension Qualifiers: Hypertension type: essential hypertension Qualified Code(s): I10 - Essential (primary) hypertension (6) Pneumonia Qualifiers: Pneumonia type: due to unspecified organism Laterality: right Lung location: lower lobe of lung Qualified Code(s): J18.1 - Lobar pneumonia, unspecified organism
[2018-08-13] MEDS: Levofloxacin 750 MG/150 ML 750 MG/150 ML BAG IVPB SCH (16:31)
[2018-08-13] MEDS ORDERED: Insulin LISPRO 300 UNITS/3 ML VIAL SQ SCH (21:00)
[2018-08-14 05:28] LABS: Basophils % 0.1 %; Red Cell Distribution Width 12.6 % (11.5-14.5)
[2018-08-14 05:30] LABS: Eosinophils # 0.2 K/mcL (0.0-0.6); Eosinophils % 0.6 %; Hematocrit 34.2 % (35.3-44.9); Hemoglobin 11.4 g/dL (11.5-15.4); Immature Granulocytes % 0.5 % (0-4); Lymphocytes # 3.2 K/mcL (0.6-4.6); Lymphocytes % 12.5 %; Mean Corpuscular HGB Conc 33.3 g/dL (31.6-35.5); Mean Corpuscular Hemoglobin 28.6 pg (28.0-33.3); Mean Corpuscular Volume 85.7 fL (83.0-100.0); Mean Platelet Volume 10.5 fL (9.4-12.4); Monocytes # 1.7 K/mcL (0.0-1.3); Monocytes % 6.5 %; Neutrophils # 20.5 K/mcL (1.6-8.9); Platelet Count 402 K/mcL (140-400); Red Blood Count 3.99 M/mcL (3.82-4.97); Segmented Neutrophils % 79.8 %
[2018-08-14 05:47] LABS: BUN/Creatinine Ratio 33 (6-26); Blood Urea Nitrogen 19 mg/dL (8-23); Calcium 9.3 mg/dL (8.6-10.3); Carbon Dioxide 29 mEq/L (23-29); Chloride 100 mEq/L (98-107); Glucose 161 mg/dL (70-105); Osmolality,Calculated 288 (280-300); Sodium 136 mEq/L (136-145); eGFR For Non-African Americans > 60 (> 60)
--- NOTE | 2018-08-14 06:42 | Pulmonology Progress Note ---
Date of Encounter: 08/14/18 Time of Encounter: 06:42 Assessment and Plan (1) Hemoptysis Current Visit: Yes Status: Acute This is secondary to likely endobronchial lesion which is malignant complicated by pneumonia and has resolved (2) Pneumonia Current Visit: Yes Status: Acute Agree with continuation of antimicrobials for a total of 7 days duration based upon clinical course can tailor antimicrobial to microbiological data from bronchoscopy which thus far has been negative Qualifiers: Pneumonia type: due to unspecified organism Laterality: right Lung location: lower lobe of lung Qualified Code(s): J18.1 - Lobar pneumonia, unspecified organism (3) COPD exacerbation Current Visit: Yes Status: Acute Prednisone 40 mg 5 days Start Symbicort 160/4.52 puffs twice a day Bronchodilators (duo nebs) every 6 hours with every hour albuterol as needed Smoking cessation counseling given (4) Malignant endobronchial neoplasm of left lung Current Visit: Yes Status: Acute Suspect pathology preliminary results should be due to day I will call pathology to confirm this if this is nondiagnostic will likely need to repeat bronchoscopy in which case she can stay overnight and this can be scheduled for tomorrow alternatively this can be scheduled as an outpatient (5) Tobacco abuse Current Visit: Yes Status: Acute Smoking cessation counseling given Patient will regardless need outpatient pulmonary follow-up in 1-2 weeks at the time of discharge Subjective Principal diagnosis: Hemoptysis Interval history: Ms Corona continues to improve no further episodes of hemoptysis she is been noted to be out of bed sitting in chair as well as ambulating without difficulty she is not requiring any supplemental oxygen Objective PUL Vital signs: Last Vital Signs Temp 97.8 F 08/14/18 04:00 Pulse 83 08/14/18 04:00 Resp 16 08/14/18 04:00 BP 162/77 08/14/18 04:00 Pulse Ox 98 08/14/18 04:00 General appearance: no acute distress Eyes: nonicteric ENT: oropharynx moist Effort: normal Auscultation: bilateral: clear Cardiovascular: regular rate and rhythm Gastrointestinal: normoactive bowel sounds, soft, non-tender Integumentary: normal Extremities: no cyanosis, no edema, no clubbing Musculoskeletal: no deformities normal mental status, non-focal exam mood appropriate Results - Laboratory Findings CBC and BMP: 08/14/18 05:00 08/14/18 04:59 PT/INR, D-dimer PT 17.5 Seconds (9.4-12.1) H 08/12/18 11:05 Abnormal lab findings: Abnormal lab results WBC 25.7 K/mcL (4.3-11.1) H 08/14/18 05:00 Hgb 11.4 g/dL (11.5-15.4) L 08/14/18 05:00 Hct 34.2 % (35.3-44.9) L 08/14/18 05:00 Plt Count 402 K/mcL (140-400) H 08/14/18 05:00 Neutrophils # 17.2 K/mcL (1.6-8.9) H 08/13/18 05:37 PT 17.5 Seconds (9.4-12.1) H 08/12/18 11:05 Creatinine 0.57 mg/dL (0.60-1.20) L 08/14/18 04:59 BUN/Creatinine Ratio 33 (6-26) H 08/14/18 04:59 Glucose 161 mg/dL (70-105) H 08/14/18 04:59 POC Glucose 334 mg/dL (70-99) H 08/13/18 20:56 Magnesium 1.5 mg/dL (1.6-2.6) L 08/13/18 05:37 TSH 0.190 mcIU/mL (0.340-5.600) L 08/13/18 05:37 Urine Osmolality 230 mOsm/kg (300-1090) L 08/12/18 23:00 Fluid Appearance Cloudy (Clear) A 08/12/18 19:13 - Microbiology Findings Microbiology Findings: Microbiology, Last 48 Hours 08/12/18 19:13 Fungal Culture - Preliminary Right Lower Lobe Lung Culture is incubating. 08/12/18 19:13 Gram Stain - Final Right Lower Lobe Lung 08/12/18 23:00 Legionella Antigen - Final Urine,Random-Not Preferred Streptococcus pneumoniae Antigen (M - Final 08/12/18 11:13 Influenza Types A,B Antigen - Final Nasopharyngeal 08/12/18 11:04 Blood Culture - Preliminary Peripheral Venipuncture Culture is incubating and being continuously monitored for growth. Final report to follow. 08/12/18 11:04 Blood Culture - Preliminary Peripheral Venipuncture Culture is incubating and being continuously monitored for growth. Final report to follow. - Clinical Findings Intake & Output: Intake & Output 08/13/18 08/13/18 08/14/18 15:59 23:59 07:59 Intake Total 0 / 0 120 / 120 Output Total 800 / 800 600 / 600 1100 / 1100 Balance -800 / -800 -600 / -600 -980 / -980 Weight 74.8 kg Consult Discharge Plan - Plan Referrals: Zion Moss MD [Primary Care Provider] -
[2018-08-14] MEDS: Insulin LISPRO 300 UNITS/3 ML VIAL SQ SCH ×2 (07:35→11:41)
[2018-08-14] MEDS: Multivit/Ca/Min/Fe/FA 1 TAB TABLET PO SCH (08:33)
[2018-08-14] MEDS: Furosemide 20 MG TABLET PO SCH (08:34)
[2018-08-14] MEDS: Cholecalciferol (D-3) 1,000 UNIT TABLET PO SCH (08:35)
[2018-08-14] MEDS ORDERED: predniSONE 20 MG TABLET PO SCH (09:00)
[2018-08-14 10:05] VITALS: BP 133/62
--- NOTE | 2018-08-14 11:32 | Discharge Summary ---
- NOTES TO OUTPATIENT PROVIDER Notes to Outpatient Provider: 1. F/U with pulmonology for biopsy result and further treatment. Orders not resulted at time of discharge: Pending orders 08/12/18 11:04 Culture,Blood [BC] Stat 08/12/18 19:13 AFB Culture, Respiratory [TB] Routine AFB Smear [TB] Routine Culture,Respiratory [RM] Routine Fungal Culture [MYC] Routine Gram Stain [RM] Routine Herpes Simplex PCR Body Fl Routine Legionella Culture [RM] Routine Resp.Virus Panel,Body Fl Routine Cytology [PTH] Routine Date of Encounter: 08/14/18 Time of Encounter: 10:00 - Discharge Diagnosis (1) DVT prophylaxis Priority: Secondary Status: Acute (2) Diabetes mellitus Priority: Secondary Status: Acute Qualifiers: Diabetes mellitus type: type 2 Diabetes mellitus nursing home insulin use: without medical terminologist use Diabetes mellitus complication status: without complication Qualified Code(s): E11.9 - Type 2 diabetes mellitus without complications (3) Hypertension Priority: Secondary Status: Acute Qualifiers: Hypertension type: essential hypertension Qualified Code(s): I10 - Essential (primary) hypertension (4) Hemoptysis Priority: Primary Status: Acute (5) Hyponatremia Priority: Secondary Status: Acute (6) Pneumonia Priority: Primary Status: Acute Qualifiers: Pneumonia type: due to unspecified organism Laterality: right Lung location: lower lobe of lung Qualified Code(s): J18.1 - Lobar pneumonia, unspecified organism Hospital course: Ms. Corona is a 67 year old female present to emergency room for hemoptysis. Chest x-ray shows right lower lobe pneumonia. CTA has been done, no PE, but suspect right lung tumor with obstructive pneumonia. Pulmonology consult saw patient, bronchoscope has been done and pathology is pending. She has no further hemoptysis for two days after bronchoscope. Patient feels back pain has improved after antibiotic treatment. No fever. Has minimal cough. WBC trended down but elevated again likely due to steroid use. Will continue antibiotic to finish 7 day course. Continue by mouth steroids to finish 5 day course. Add Symbicort. Patient will follow-up with pulmonology as outpatient. I have seen and examined the patient today. Patient is doing fine. Denies shortness of breath. Oxygen saturation 94-98% in room air. Denies further hemoptysis. Will DC patient home on by mouth antibiotics. Will hold home medication baby aspirin. Patient was advised to come to emergency room immediately if hemoptysis happen again. Discharge discussed with: patient - Time Spent with Patient Total time spent providing and/or coordinating discharge services: 40 minutes Time spent: Greater than 30 minutes - Discharge Medications Prescriptions: New predniSONE [PredniSONE] 40 mg PO DAILY 3 Days #6 tablet Continue Glimepiride [Amaryl] 2 mg PO 0800 Multivitamin [Daily Multiple Vitamin] 1 each PO DAILY Calcium Carbonate/Vitamin D3 [Calcium 600 + Vit D Softgel] 1 each PO DAILY Potassium Chloride [Klor-Con 10] 8 meq PO DAILY Furosemide [Lasix] 10 mg PO DAILY Omeprazole [PriLOSEC] 20 mg PO DAILY Simvastatin [Zocor] 40 mg PO QAM Carvedilol [Coreg] 6.25 mg PO BIDWM [place]-3/Dha/Epa/Fish Oil [Fish Oil 1,000 mg Softgel] 2 each PO DAILY Lisinopril [Zestril] 10 mg PO DAILY Triamterene/HCTZ 37.5/25mg [Dyazide] 1 tab PO QAM Discontinued Aspirin [Adult Aspirin] 81 mg PO DAILY Home Medications: Calcium Carbonate/Vitamin D3 [Calcium 600 + Vit D Softgel] 1 each PO DAILY 08/12/18 [History] Carvedilol [Coreg] 6.25 mg PO BIDWM 08/12/18 [History] Furosemide [Lasix] 10 mg PO DAILY 08/12/18 [History] Glimepiride [Amaryl] 2 mg PO 0800 08/12/18 [History] Multivitamin [Daily Multiple Vitamin] 1 each PO DAILY 08/12/18 [History] [place]-3/Dha/Epa/Fish Oil [Fish Oil 1,000 mg Softgel] 2 each PO DAILY 08/12/18 [History] Omeprazole [PriLOSEC] 20 mg PO DAILY 08/12/18 [History] Potassium Chloride [Klor-Con 10] 8 meq PO DAILY 08/12/18 [History] Simvastatin [Zocor] 40 mg PO QAM 08/12/18 [History] Lisinopril [Zestril] 10 mg PO DAILY 08/13/18 [History] Triamterene/HCTZ 37.5/25mg [Dyazide] 1 tab PO QAM 08/13/18 [History] Alcohol Antiseptic Pads [Alcohol Pads] 1 each ACHS #400 med..pad 08/14/18 [Rx] Blood Sugar Diagnostic [Glucose Test Strip] 1 each ACHS #400 strip 08/14/18 [Rx] Blood-Glucose Meter [Blood Glucose Monitoring] 1 each ACHS #1 each 08/14/18 [Rx] Budesonide/Formoterol 160/4.5 [Symbicort 160/4.5] 2 puff IH BIDR #1 bottle 08/14/18 [Rx] GuaiFENesin Liq [Robitussin Liq] 200 mg PO Q6HR #200 mls 08/14/18 [Rx] Lancets 1 each ACHS #400 each 08/14/18 [Rx] levoFLOXacin [Levaquin] 750 mg PO DAILY 5 Days #5 tablet 08/14/18 [Rx] predniSONE [PredniSONE] 40 mg PO DAILY 3 Days #6 tablet 08/14/18 [Rx] Allergies/Adverse Reactions: Allergy/AdvReac Type Severity Reaction Status Date / Time cefdinir Allergy Diarrhea Verified 08/11/18 00:30 codeine Allergy Anaphylaxis Verified 08/11/18 00:30 Date of admission: 08/12/18 14:53 Primary care physician: Zion Moss MD Consults: 08/12/18 13:30 Consult to Pulmonology [CONS] Stat Consulting Provider: [facility] Reason for Consult: lobar pna r/o mass Call Completed: No Discharging clinician: Gunnar Dee Anticipated date of discharge: 08/14/18 - Constitutional Vitals: Temp Pulse Resp BP Pulse Ox 98.4 F 94 16 133/62 94 08/14/18 10:02 08/14/18 10:02 08/14/18 10:02 08/14/18 10:02 08/14/18 07:09 Exam: Pt is AAO x 3, in NAD HEENT: NC/AT, PERRL Neck: Supple, no JVD, no LAD Lungs: CTA b/l Heart: S1S2, RRR Abd: Soft, nontender, BS present Ext: ROM wnl, no pedal edema Neuro: No focal deficit - Patient Status Disposition: Home, Self-Care Condition: Good Functional capacity at discharge: independent ambulation Overall status at discharge: patient is progressing back to baseline - Discharge Instructions Follow Up With: Zion Moss MD [Primary Care Provider] - 08/19/18 10:15 am Moe Quintero MD [Partnered Physician] - 08/20/18 2:45 pm - Diet and Activity Activity: increase activity as tolerated Diet: diabetic diet
--- NOTE | 2018-08-14 12:09 | Event Note ---
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 She will need outpatient oncology follow-up for staging and will also need Follow-up in pulmonary clinic thank you for this consultation
[2018-08-14] MEDS ORDERED: Insulin DETEMIR 100 UNIT/ML X5UNITS SQ SCH (21:00)
[2018-08-15 17:56] LABS: Influenza A PCR Body Fluid NOT DETECTED; Influenza B PCR Body Fluid NOT DETECTED; RVP Body Fluid Source BAL
[2018-08-16 10:04] LABS: RSV PCR Body Fluid NOT DETECTED
[2018-08-16 12:46] LABS: HSV Source BAL RLL
== END 2018-08-14 13:51 | disposition home or self-care (01) ==
LOC: EMEROOARM 10:05 → 2NENU 10:05 → SUATTDRO 14:53 → 2NENU 15:49
PROVIDERS: ADMIT Internal Medicine; ATTEND Internal Medicine

== ENCOUNTER 2019-04-06 12:11 | Inpatient (IN) ==
[2019-04-06] MEDS ORDERED: Pantoprazole 40 MG VIAL IVP ONE (12:47)
[2019-04-06] MEDS ORDERED: methylPREDNISolone 125 MG/2 ML VIAL IVP ONE (12:48)
[2019-04-06] MEDS ORDERED: Ipratropium/Albuterol Neb 3 ML IH ONE (12:48)
[2019-04-06] MEDS ORDERED: GI Cocktail 40 ML EACH PO ONE (13:19)
[2019-04-06] MEDS ORDERED: Lido/Epi/Tetra Gel 2 ML SYRINGE TP ONE (13:36)
[2019-04-06 15:00] LABS: Basophils # 0.1 K/mcL (0.0-0.2); Basophils % 0.7 %; Eosinophils # 0.2 K/mcL (0.0-0.6); Eosinophils % 1.4 %; Hematocrit 35.7 % (35.3-44.9); Hemoglobin 11.7 g/dL (11.5-15.4); Immature Granulocytes % 0.5 % (0-4); Lymphocytes # 1.9 K/mcL (0.6-4.6); Lymphocytes % 14.5 %; Mean Corpuscular HGB Conc 32.8 g/dL (31.6-35.5); Mean Corpuscular Hemoglobin 27.3 pg (28.0-33.3); Mean Corpuscular Volume 83.2 fL (83.0-100.0); Mean Platelet Volume 9.8 fL (9.4-12.4); Monocytes # 1.4 K/mcL (0.0-1.3); Monocytes % 10.7 %; Neutrophils # 9.2 K/mcL (1.6-8.9); Platelet Count 365 K/mcL (140-400); Red Blood Count 4.29 M/mcL (3.82-4.97); Red Cell Distribution Width 14.6 % (11.5-14.5); Segmented Neutrophils % 72.2 %; White Blood Count 12.8 K/mcL (4.3-11.1)
[2019-04-06 15:22] LABS: BUN/Creatinine Ratio 43 (6-26); Blood Urea Nitrogen 21 mg/dL (8-23); Calcium 9.2 mg/dL (8.6-10.3); Carbon Dioxide 28 mEq/L (23-29); Chloride 97 mEq/L (98-107); Glucose 106 mg/dL (70-105); Osmolality,Calculated 281 (280-300); Potassium 4.1 mEq/L (3.5-5.1); Sodium 134 mEq/L (136-145); Troponin I < 0.03 ng/mL (< 0.04); eGFR For African Americans > 60 (> 60); eGFR For Non-African Americans > 60 (> 60)
[2019-04-06] MEDS ORDERED: Naloxone 0.4 MG/ML INJ IVP PRN (15:59)
[2019-04-06] MEDS ORDERED: Ondansetron 4 MG/2 ML VIAL IVP PRN (15:59)
[2019-04-06] MEDS ORDERED: D5% in Water 1,000 ML IVC PRN (16:08)
[2019-04-06] MEDS ORDERED: Dextrose Gel 15 GM/37.5 ML TUBE PO PRN ×2 (16:08)
[2019-04-06] MEDS ORDERED: *HR* Dextrose 50 % in Water (Syg) 50 ML SYRINGE IVP PRN (16:08)
[2019-04-06] MEDS: Insulin LISPRO 300 UNITS/3 ML VIAL SQ SCH ×2 (18:28→20:53)
[2019-04-07 02:18] LABS: Basophils % 0.1 %; Eosinophils % 0.1 %; Hematocrit 35.5 % (35.3-44.9); Hemoglobin 11.7 g/dL (11.5-15.4); Immature Granulocytes % 0.7 % (0-4); Lymphocytes # 1.2 K/mcL (0.6-4.6); Lymphocytes % 12.4 %; Mean Corpuscular Hemoglobin 27.4 pg (28.0-33.3); Mean Corpuscular Volume 83.1 fL (83.0-100.0); Mean Platelet Volume 9.5 fL (9.4-12.4); Monocytes # 0.2 K/mcL (0.0-1.3); Monocytes % 1.6 %; Neutrophils # 8.1 K/mcL (1.6-8.9); Platelet Count 368 K/mcL (140-400); Red Blood Count 4.27 M/mcL (3.82-4.97); Red Cell Distribution Width 14.4 % (11.5-14.5); Segmented Neutrophils % 85.1 %; White Blood Count 9.6 K/mcL (4.3-11.1)
[2019-04-07 02:37] LABS: Alanine Aminotransferase 8 Units/L (7-52); Albumin 3.2 g/dL (3.5-5.7); Albumin/Globulin Ratio 0.6 (1.1-2.2); Alkaline Phosphatase 87 Units/L (34-104); Aspartate Amino Transferase 10 Units/L (13-39); BUN/Creatinine Ratio 38 (6-26); Bilirubin,Total 0.3 mg/dL (0.3-1.0); Blood Urea Nitrogen 19 mg/dL (8-23); Calcium 9.5 mg/dL (8.6-10.3); Carbon Dioxide 25 mEq/L (23-29); Chloride 99 mEq/L (98-107); Globulin 5.1 g/dL (2.4-3.5); Glucose 170 mg/dL (70-105); Osmolality,Calculated 286 (280-300); Phosphorous 4.4 mg/dL (2.7-4.5); Potassium 4.4 mEq/L (3.5-5.1); Sodium 135 mEq/L (136-145); Total Protein 8.3 g/dL (6.4-8.9); eGFR For African Americans > 60 (> 60); eGFR For Non-African Americans > 60 (> 60)
[2019-04-07 04:04] LABS: Troponin I < 0.03 ng/mL (< 0.04)
[2019-04-07 05:54] LABS: INR 1.2; Prothrombin Time 13.9 Seconds (9.4-12.1)
[2019-04-07] MEDS: Insulin LISPRO 300 UNITS/3 ML VIAL SQ SCH ×4 (08:46→23:33)
[2019-04-07] MEDS: Pantoprazole 40 MG VIAL IVP SCH (08:46)
[2019-04-07] MEDS: Metoprolol XL (24 HR) Succ 50 MG TAB.ER.24H PO SCH (09:24)
[2019-04-07 14:15] LABS: Estimated Average Glucose 160 mg/dl
[2019-04-07] MEDS ORDERED: Perflutren Lipid Microsphere 1.3 ML in 0.9 % Sodium Chloride 8.7 ML IVP ONE (15:58)
[2019-04-08] MEDS: Insulin LISPRO 300 UNITS/3 ML VIAL SQ SCH ×4 (08:33→21:15)
[2019-04-08] MEDS: Metoprolol XL (24 HR) Succ 50 MG TAB.ER.24H PO SCH (08:36)
[2019-04-08] MEDS: Pantoprazole 40 MG VIAL IVP SCH (08:36)
[2019-04-08] MEDS: GuaiFENesin Liq 200 MG/10 ML UDC PO PRN ×2 (08:40→21:15)
[2019-04-08] MEDS ORDERED: *HR* Propofol 200 MG/20 ML VIAL IVP ONE (12:53)
[2019-04-08] MEDS ORDERED: Lidocaine -MPF 2% 2 ML VIAL ONE (12:56)
[2019-04-08] MEDS ORDERED: *HR* Succinylcholine 200 MG/10 ML VIAL IVP ONE (12:59)
[2019-04-08] MEDS ORDERED: Albuterol 2.5 MG/3 ML NEBULIZER ONE (13:57)
[2019-04-08] MEDS ORDERED: Albuterol 2.5 MG/3 ML NEBULIZER IH ONE (14:02)
[2019-04-08] MEDS: Ringers Solution, Lactated 1,000 ML IVC SCH (16:00)
[2019-04-09] MEDS: Ringers Solution, Lactated 1,000 ML IVC SCH ×3 (01:29→20:22)
[2019-04-09] MEDS: GuaiFENesin Liq 200 MG/10 ML UDC PO PRN (03:57)
[2019-04-09 06:03] LABS: Hematocrit 35.9 % (35.3-44.9); Hemoglobin 11.7 g/dL (11.5-15.4); Mean Corpuscular HGB Conc 32.6 g/dL (31.6-35.5); Mean Corpuscular Volume 82.9 fL (83.0-100.0); Mean Platelet Volume 10.1 fL (9.4-12.4); Platelet Count 346 K/mcL (140-400); Red Blood Count 4.33 M/mcL (3.82-4.97); Red Cell Distribution Width 14.6 % (11.5-14.5); White Blood Count 9.5 K/mcL (4.3-11.1)
[2019-04-09 06:27] LABS: BUN/Creatinine Ratio 24 (6-26); Blood Urea Nitrogen 11 mg/dL (8-23); Calcium 8.9 mg/dL (8.6-10.3); Carbon Dioxide 27 mEq/L (23-29); Chloride 100 mEq/L (98-107); Glucose 128 mg/dL (70-105); Osmolality,Calculated 285 (280-300); Potassium 3.7 mEq/L (3.5-5.1); Sodium 137 mEq/L (136-145); eGFR For African Americans > 60 (> 60); eGFR For Non-African Americans > 60 (> 60)
[2019-04-09] MEDS: Insulin LISPRO 300 UNITS/3 ML VIAL SQ SCH ×4 (09:05→20:18)
[2019-04-09] MEDS: Metoprolol XL (24 HR) Succ 50 MG TAB.ER.24H PO SCH (09:10)
[2019-04-09] MEDS: Pantoprazole 40 MG VIAL IVP SCH (09:10)
[2019-04-09] MEDS ORDERED: *HR* Alteplase (Cathflo) 2 MG VIAL IVP ONE (10:11)
[2019-04-09] MEDS ORDERED: E-Z-HD (BARIUM SULF) SUSPENSION PO ONE (14:20)
[2019-04-09] MEDS ORDERED: Simethicone/Sodium Bic/Citr Ac 1 EACH GRAN.EF.PK PO ONE (14:20)
[2019-04-09] MEDS ORDERED: Barium Sulfate 1 TAB TABLET PO ONE (14:20)
[2019-04-09] MEDS ORDERED: E-Z-PAQUE (BARIUM SULF) SUSP 1 BOTTLE PO ONE (14:20)
[2019-04-10] MEDS: Ringers Solution, Lactated 1,000 ML IVC SCH ×2 (06:33→13:09)
[2019-04-10 07:14] LABS: BUN/Creatinine Ratio 17 (6-26); Blood Urea Nitrogen 8 mg/dL (8-23); Calcium 8.6 mg/dL (8.6-10.3); Carbon Dioxide 28 mEq/L (23-29); Chloride 100 mEq/L (98-107); Glucose 123 mg/dL (70-105); Osmolality,Calculated 282 (280-300); Potassium 3.5 mEq/L (3.5-5.1); Sodium 136 mEq/L (136-145); eGFR For African Americans > 60 (> 60); eGFR For Non-African Americans > 60 (> 60)
[2019-04-10] MEDS: Metoprolol XL (24 HR) Succ 50 MG TAB.ER.24H PO SCH (07:37)
[2019-04-10] MEDS: Pantoprazole 40 MG VIAL IVP SCH (07:38)
[2019-04-10] MEDS: Insulin LISPRO 300 UNITS/3 ML VIAL SQ SCH ×4 (07:38→20:24)
[2019-04-10] MEDS ORDERED: *HR* Succinylcholine 200 MG/10 ML VIAL IVP ONE (09:08)
[2019-04-10] MEDS ORDERED: *HR* Propofol 200 MG/20 ML VIAL IVP ONE (09:08)
[2019-04-10] MEDS ORDERED: *HR* FentaNYL (PF) 100 MCG/2 ML VIAL ONE ×2 (09:09→11:05)
[2019-04-10] MEDS ORDERED: Lidocaine -MPF 2% 2 ML VIAL ONE (09:10)
[2019-04-10] MEDS ORDERED: Ondansetron 4 MG/2 ML VIAL ONE (09:11)
[2019-04-10] MEDS ORDERED: Dexamethasone 4 MG/ML VIAL ONE (09:11)
[2019-04-10] MEDS ORDERED: Lidocaine HCL 4 ML Topical Solution (Laryng-O-Jet Kit Sterile Pak) TP ONE (09:49)
[2019-04-10] MEDS ORDERED: Acetaminophen IV 1,000 MG/100 ML INFUS..BTL ONE (09:51)
[2019-04-10] MEDS ORDERED: cefOXitin 2,000 MG in Water for inj. (sterile) 20 ML IVP ONE (09:55)
[2019-04-10] MEDS ORDERED: CefOXitin 2,000 MG VIAL ONE (10:07)
[2019-04-10] MEDS ORDERED: *HR* OxyCODONE Immed Rel 5 MG TABLET PO PRN (10:12)
[2019-04-10] MEDS ORDERED: *HR* PHENYLEPHRINE 1,000 MCG/10 ML SYRINGE IVP ONE (10:33)
[2019-04-10] MEDS ORDERED: CefOXitin 1,000 MG VIAL ONE ×2 (11:06→17:02)
[2019-04-10] MEDS ORDERED: Povidone-Iodine 28.4 GM TUBE TP ONE (11:14)
[2019-04-10] MEDS: *HR* HYDROmorphone (PF) 1 MG/ML SYRINGE IVP PRN ×2 (11:45→11:55)
[2019-04-10] MEDS ORDERED: Barium Sulfate 1 TAB TABLET PO ONE (12:34)
[2019-04-10] MEDS ORDERED: E-Z-PAQUE (BARIUM SULF) SUSP 1 BOTTLE PO ONE (12:34)
[2019-04-10] MEDS ORDERED: Simethicone/Sodium Bic/Citr Ac 1 EACH GRAN.EF.PK PO ONE (12:34)
[2019-04-10] MEDS ORDERED: *HR* Dextrose 50 % in Water (Syg) 50 ML SYRINGE IVP PRN (12:34)
[2019-04-10] MEDS ORDERED: Morphine Sulfate Oral CONC 10 MG/0.5 ML ORAL.SYG SL PRN (12:34)
[2019-04-10] MEDS ORDERED: E-Z-HD (BARIUM SULF) SUSPENSION PO ONE (12:34)
[2019-04-10] MEDS ORDERED: Naloxone 0.4 MG/ML INJ IVP PRN (12:34)
[2019-04-10] MEDS ORDERED: GuaiFENesin Liq 200 MG/10 ML UDC PO PRN (12:34)
[2019-04-10] MEDS ORDERED: D5% in Water 1,000 ML IVC PRN (12:34)
[2019-04-10] MEDS ORDERED: Dextrose Gel 15 GM/37.5 ML TUBE PO PRN ×2 (12:34)
[2019-04-10] MEDS: Ondansetron 4 MG/2 ML VIAL IVP PRN ×2 (13:08→17:04)
[2019-04-10] MEDS: cefOXitin 1,000 MG in Water for inj. (sterile) 10 ML IVP SCH ×2 (17:08→23:52)
[2019-04-11] MEDS: Ringers Solution, Lactated 1,000 ML IVC SCH ×2 (03:09→13:23)
[2019-04-11] MEDS: Insulin LISPRO 300 UNITS/3 ML VIAL SQ SCH ×4 (07:22→20:59)
[2019-04-11] MEDS: Metoprolol XL (24 HR) Succ 50 MG TAB.ER.24H PO SCH (09:04)
[2019-04-11] MEDS: Pantoprazole 40 MG VIAL IVP SCH (09:05)
[2019-04-11] MEDS ORDERED: Lidocaine Viscous Oral Soln 15 ML SOLUTION MM PRN (09:05)
[2019-04-11] MEDS: Furosemide 20 MG TABLET PO SCH (13:05)
[2019-04-11] MEDS: Ondansetron 4 MG/2 ML VIAL IVP PRN (15:43)
[2019-04-11] MEDS ORDERED: *HR* LORazepam 2 MG/ML VIAL IVP ONE (23:49)
[2019-04-12 05:47] LABS: Hematocrit 36.1 % (35.3-44.9); Hemoglobin 11.4 g/dL (11.5-15.4); Mean Corpuscular HGB Conc 31.6 g/dL (31.6-35.5); Mean Corpuscular Hemoglobin 27.3 pg (28.0-33.3); Mean Corpuscular Volume 86.6 fL (83.0-100.0); Mean Platelet Volume 9.7 fL (9.4-12.4); Platelet Count 262 K/mcL (140-400); Red Blood Count 4.17 M/mcL (3.82-4.97); Red Cell Distribution Width 14.6 % (11.5-14.5); White Blood Count 10.4 K/mcL (4.3-11.1)
[2019-04-12 06:17] LABS: Alanine Aminotransferase 5 Units/L (7-52); Albumin 2.8 g/dL (3.5-5.7); Albumin/Globulin Ratio 0.7 (1.1-2.2); Alkaline Phosphatase 68 Units/L (34-104); Aspartate Amino Transferase 11 Units/L (13-39); BUN/Creatinine Ratio 20 (6-26); Bilirubin,Total 0.2 mg/dL (0.3-1.0); Blood Urea Nitrogen 11 mg/dL (8-23); Calcium 8.5 mg/dL (8.6-10.3); Carbon Dioxide 30 mEq/L (23-29); Chloride 95 mEq/L (98-107); Globulin 4.1 g/dL (2.4-3.5); Glucose 165 mg/dL (70-105); Osmolality,Calculated 277 (280-300); Potassium 3.6 mEq/L (3.5-5.1); Sodium 132 mEq/L (136-145); Total Protein 6.9 g/dL (6.4-8.9); eGFR For African Americans > 60 (> 60); eGFR For Non-African Americans > 60 (> 60)
[2019-04-12] MEDS: *HR* Enoxaparin 40 MG/0.4 ML SYRINGE SQ SCH (06:17)
[2019-04-12] MEDS: Insulin LISPRO 300 UNITS/3 ML VIAL SQ SCH ×4 (09:33→21:16)
[2019-04-12] MEDS: Furosemide 20 MG TABLET PO SCH (09:48)
[2019-04-12] MEDS: Pantoprazole 40 MG VIAL IVP SCH (09:48)
[2019-04-12] MEDS: Metoprolol XL (24 HR) Succ 50 MG TAB.ER.24H PO SCH (09:48)
[2019-04-13] MEDS: *HR* Enoxaparin 40 MG/0.4 ML SYRINGE SQ SCH (06:02)
[2019-04-13 06:20] LABS: Hematocrit 36.3 % (35.3-44.9); Hemoglobin 11.2 g/dL (11.5-15.4); Mean Corpuscular HGB Conc 30.9 g/dL (31.6-35.5); Mean Corpuscular Hemoglobin 26.7 pg (28.0-33.3); Mean Corpuscular Volume 86.6 fL (83.0-100.0); Mean Platelet Volume 10.1 fL (9.4-12.4); Platelet Count 248 K/mcL (140-400); Red Blood Count 4.19 M/mcL (3.82-4.97); Red Cell Distribution Width 14.5 % (11.5-14.5)
[2019-04-13 06:40] LABS: Alanine Aminotransferase 8 Units/L (7-52); Albumin 2.9 g/dL (3.5-5.7); Albumin/Globulin Ratio 0.7 (1.1-2.2); Alkaline Phosphatase 84 Units/L (34-104); Aspartate Amino Transferase 13 Units/L (13-39); BUN/Creatinine Ratio 26 (6-26); Bilirubin,Total 0.2 mg/dL (0.3-1.0); Blood Urea Nitrogen 12 mg/dL (8-23); Calcium 8.5 mg/dL (8.6-10.3); Carbon Dioxide 32 mEq/L (23-29); Chloride 95 mEq/L (98-107); Globulin 4.2 g/dL (2.4-3.5); Glucose 221 mg/dL (70-105); Osmolality,Calculated 285 (280-300); Potassium 3.5 mEq/L (3.5-5.1); Sodium 134 mEq/L (136-145); Total Protein 7.1 g/dL (6.4-8.9); eGFR For African Americans > 60 (> 60); eGFR For Non-African Americans > 60 (> 60)
[2019-04-13] MEDS: Insulin LISPRO 300 UNITS/3 ML VIAL SQ SCH ×4 (08:00→20:26)
[2019-04-13] MEDS: Furosemide 20 MG TABLET PO SCH (09:09)
[2019-04-13] MEDS: Pantoprazole 40 MG VIAL IVP SCH (09:09)
[2019-04-13] MEDS: Metoprolol XL (24 HR) Succ 50 MG TAB.ER.24H PO SCH (09:10)
[2019-04-13 10:30] LABS: Basophils % 0.3 %; Eosinophils # 0.4 K/mcL (0.0-0.6); Eosinophils % 3.4 %; Hematocrit 35.3 % (35.3-44.9); Hemoglobin 11.5 g/dL (11.5-15.4); Immature Granulocytes % 0.4 % (0-4); Lymphocytes # 0.7 K/mcL (0.6-4.6); Lymphocytes % 6.5 %; Mean Corpuscular HGB Conc 32.6 g/dL (31.6-35.5); Mean Corpuscular Hemoglobin 27.4 pg (28.0-33.3); Mean Corpuscular Volume 84.2 fL (83.0-100.0); Monocytes # 1.1 K/mcL (0.0-1.3); Monocytes % 9.4 %; Neutrophils # 8.9 K/mcL (1.6-8.9); Platelet Count 258 K/mcL (140-400); Red Blood Count 4.19 M/mcL (3.82-4.97); Red Cell Distribution Width 14.5 % (11.5-14.5); White Blood Count 11.2 K/mcL (4.3-11.1)
[2019-04-14] MEDS: *HR* Enoxaparin 40 MG/0.4 ML SYRINGE SQ SCH (05:31)
[2019-04-14 05:32] LABS: Basophils % 0.3 %; Eosinophils # 0.5 K/mcL (0.0-0.6); Eosinophils % 4.3 %; Hematocrit 34.5 % (35.3-44.9); Hemoglobin 10.8 g/dL (11.5-15.4); Immature Granulocytes % 0.6 % (0-4); Lymphocytes # 1.3 K/mcL (0.6-4.6); Lymphocytes % 10.9 %; Mean Corpuscular HGB Conc 31.3 g/dL (31.6-35.5); Mean Corpuscular Hemoglobin 27.3 pg (28.0-33.3); Mean Corpuscular Volume 87.3 fL (83.0-100.0); Mean Platelet Volume 9.9 fL (9.4-12.4); Monocytes # 1.2 K/mcL (0.0-1.3); Monocytes % 10.2 %; Neutrophils # 8.8 K/mcL (1.6-8.9); Platelet Count 261 K/mcL (140-400); Red Blood Count 3.95 M/mcL (3.82-4.97); Red Cell Distribution Width 14.6 % (11.5-14.5); Segmented Neutrophils % 73.7 %
[2019-04-14 05:48] LABS: Alanine Aminotransferase 9 Units/L (7-52); Albumin 2.9 g/dL (3.5-5.7); Albumin/Globulin Ratio 0.7 (1.1-2.2); Alkaline Phosphatase 100 Units/L (34-104); Aspartate Amino Transferase 12 Units/L (13-39); BUN/Creatinine Ratio 33 (6-26); Bilirubin,Total 0.2 mg/dL (0.3-1.0); Blood Urea Nitrogen 14 mg/dL (8-23); Calcium 8.8 mg/dL (8.6-10.3); Carbon Dioxide 32 mEq/L (23-29); Chloride 95 mEq/L (98-107); Globulin 4.1 g/dL (2.4-3.5); Glucose 160 mg/dL (70-105); Osmolality,Calculated 280 (280-300); Sodium 133 mEq/L (136-145); eGFR For African Americans > 60 (> 60); eGFR For Non-African Americans > 60 (> 60)
[2019-04-14] MEDS: Insulin LISPRO 300 UNITS/3 ML VIAL SQ SCH ×3 (07:53→18:12)
[2019-04-14] MEDS ORDERED: Furosemide 20 MG TABLET PO SCH (09:00)
[2019-04-14] MEDS ORDERED: levoFLOXacin 750 MG/150 ML 750 MG/150 ML BAG IVPB SCH (09:00)
[2019-04-14] MEDS ORDERED: NON-FORMULARY MEDICATION 1 EACH EACH (Omeprazole [Prilosec] 40 MG) PO SCH (09:00)
[2019-04-14] MEDS: Metoprolol XL (24 HR) Succ 50 MG TAB.ER.24H PO SCH (09:29)
[2019-04-14] MEDS: Pantoprazole 40 MG VIAL IVP SCH (09:30)
[2019-04-15] MEDS: Insulin LISPRO 300 UNITS/3 ML VIAL SQ SCH ×3 (02:50→14:22)
[2019-04-15] MEDS: *HR* Enoxaparin 40 MG/0.4 ML SYRINGE SQ SCH (05:45)
[2019-04-15 06:19] LABS: Basophils # 0.1 K/mcL (0.0-0.2); Basophils % 0.6 %; Eosinophils # 0.3 K/mcL (0.0-0.6); Eosinophils % 3.1 %; Hematocrit 35.7 % (35.3-44.9); Hemoglobin 11.4 g/dL (11.5-15.4); Immature Granulocytes % 0.5 % (0-4); Lymphocytes # 1.2 K/mcL (0.6-4.6); Lymphocytes % 11.5 %; Mean Corpuscular HGB Conc 31.9 g/dL (31.6-35.5); Mean Corpuscular Hemoglobin 26.9 pg (28.0-33.3); Mean Corpuscular Volume 84.2 fL (83.0-100.0); Mean Platelet Volume 10.8 fL (9.4-12.4); Monocytes # 1.2 K/mcL (0.0-1.3); Monocytes % 10.8 %; Neutrophils # 7.8 K/mcL (1.6-8.9); Platelet Count 308 K/mcL (140-400); Red Blood Count 4.24 M/mcL (3.82-4.97); Red Cell Distribution Width 14.6 % (11.5-14.5); Segmented Neutrophils % 73.5 %; White Blood Count 10.7 K/mcL (4.3-11.1)
[2019-04-15 06:38] LABS: Alanine Aminotransferase 8 Units/L (7-52); Albumin 3.1 g/dL (3.5-5.7); Albumin/Globulin Ratio 0.7 (1.1-2.2); Alkaline Phosphatase 102 Units/L (34-104); Aspartate Amino Transferase 10 Units/L (13-39); BUN/Creatinine Ratio 27 (6-26); Bilirubin,Total 0.4 mg/dL (0.3-1.0); Blood Urea Nitrogen 11 mg/dL (8-23); Calcium 9.2 mg/dL (8.6-10.3); Carbon Dioxide 29 mEq/L (23-29); Chloride 95 mEq/L (98-107); Globulin 4.3 g/dL (2.4-3.5); Glucose 153 mg/dL (70-105); Osmolality,Calculated 280 (280-300); Potassium 3.8 mEq/L (3.5-5.1); Sodium 134 mEq/L (136-145); Total Protein 7.4 g/dL (6.4-8.9); eGFR For African Americans > 60 (> 60); eGFR For Non-African Americans > 60 (> 60)
[2019-04-15] MEDS ORDERED: levoFLOXacin 750 MG TABLET PO SCH (09:00)
[2019-04-15] MEDS ORDERED: Furosemide 20 MG TABLET PO SCH (09:00)
[2019-04-15] MEDS ORDERED: Metoprolol XL (24 HR) Succ 50 MG TAB.ER.24H PO SCH (09:00)
[2019-04-15] MEDS: Pantoprazole 40 MG VIAL IVP SCH (09:06)
[2019-04-15 11:19] VITALS: BP 111/73
[2019-04-15] MEDS ORDERED: Bisacodyl 10 MG RECTAL SUPPOSITORY RC ONE (18:10)
== END 2019-04-15 14:25 | disposition home health service (06) | DRG 326 ==
LOC: EMEROOARM 12:11 → 3BNU 12:11 → SUATTDRO 16:15 → 3BNU 16:51
PROVIDERS: ADMIT Internal Medicine; ATTEND Internal Medicine

== ENCOUNTER 2019-05-17 11:40 | Observation (INO) ==
[2019-05-17 13:02] LABS: Basophils # 0.1 K/mcL (0.0-0.2); Basophils % 0.5 %; Eosinophils # 0.2 K/mcL (0.0-0.6); Eosinophils % 1.4 %; Hematocrit 34.9 % (35.3-44.9); Hemoglobin 11.3 g/dL (11.5-15.4); Immature Granulocytes % 0.5 % (0-4); Lymphocytes # 1.7 K/mcL (0.6-4.6); Lymphocytes % 10.4 %; Mean Corpuscular HGB Conc 32.4 g/dL (31.6-35.5); Mean Corpuscular Hemoglobin 26.5 pg (28.0-33.3); Mean Corpuscular Volume 81.9 fL (83.0-100.0); Mean Platelet Volume 10.4 fL (9.4-12.4); Monocytes # 1.3 K/mcL (0.0-1.3); Monocytes % 8.2 %; Neutrophils # 12.7 K/mcL (1.6-8.9); Platelet Count 474 K/mcL (140-400); Red Blood Count 4.26 M/mcL (3.82-4.97); Red Cell Distribution Width 13.6 % (11.5-14.5); White Blood Count 16.1 K/mcL (4.3-11.1)
[2019-05-17 13:37] LABS: BUN/Creatinine Ratio 36 (6-26); Blood Urea Nitrogen 20 mg/dL (8-23); Calcium 9.7 mg/dL (8.6-10.3); Carbon Dioxide 27 mEq/L (23-29); Chloride 95 mEq/L (98-107); Glucose 191 mg/dL (70-105); Osmolality,Calculated 286 (280-300); Potassium 4.5 mEq/L (3.5-5.1); Sodium 134 mEq/L (136-145); Troponin I < 0.03 ng/mL (< 0.04); eGFR For African Americans > 60 (> 60); eGFR For Non-African Americans > 60 (> 60)
[2019-05-17] MEDS ORDERED: Isovue-370 500 ML BOTTLE IVP ONE (14:06)
[2019-05-17] MEDS ORDERED: Piperacillin/Tazobactam 3.375 GM in 0.9 % Sodium Chloride Mini Bag 100 ML IVPB ONE (14:07)
[2019-05-17] MEDS ORDERED: levoFLOXacin 750 MG/150 ML 750 MG/150 ML BAG IVPB ONE (14:07)
[2019-05-17] MEDS ORDERED: 0.9 % Sodium Chloride 1,000 ML IVC ONE (14:08)
[2019-05-17 15:04] LABS: INR 1.3; Prothrombin Time 15.3 Seconds (9.4-12.1)
[2019-05-17] MEDS ORDERED: Lidocaine -MPF 2% 2 ML VIAL ONE (17:46)
[2019-05-17] MEDS ORDERED: Ondansetron 4 MG/2 ML VIAL ONE (17:46)
[2019-05-17] MEDS ORDERED: *HR* Succinylcholine 200 MG/10 ML VIAL IVP ONE (17:46)
[2019-05-17] MEDS ORDERED: Dexamethasone 4 MG/ML VIAL ONE (17:46)
[2019-05-17] MEDS ORDERED: *HR* FentaNYL (PF) 100 MCG/2 ML VIAL ONE (17:46)
[2019-05-17] MEDS ORDERED: *HR* Propofol 200 MG/20 ML VIAL IVP ONE (17:47)
[2019-05-17] MEDS ORDERED: *HR* Midazolam HCl 2 MG/2 ML VIAL ONE (17:47)
[2019-05-17] MEDS ORDERED: Ipratropium/Albuterol Neb 3 ML IH PRN (17:56)
[2019-05-17] MEDS ORDERED: *HR* OxyCODONE Immed Rel 5 MG TABLET PO PRN (18:01)
[2019-05-17] MEDS ORDERED: Ondansetron 4 MG/2 ML VIAL IVP PRN (18:01)
[2019-05-17] MEDS ORDERED: *HR* HYDROmorphone (PF) 1 MG/ML SYRINGE IVP PRN (18:01)
[2019-05-17] MEDS ORDERED: *HR* Etomidate 40 MG/20 ML VIAL IVP ONE (18:08)
[2019-05-17] MEDS ORDERED: Aminoglycoside Consult 1 EACH MC ONE (20:46)
[2019-05-17] MEDS: Budesonide/Formoterol 160/4.5 1 PUFF INH IH SCH (21:35)
[2019-05-17] MEDS: methylPREDNISolone 125 MG/2 ML VIAL IVP SCH (22:38)
[2019-05-17] MEDS: Piperacillin/Tazobactam 3.375 GM in 0.9 % Sodium Chloride Mini Bag 100 ML IVPB SCH (22:38)
[2019-05-17] MEDS ORDERED: Albuterol 2.5 MG/3 ML NEBULIZER IH PRN (22:58)
[2019-05-17] MEDS ORDERED: D5% in Water 1,000 ML IVC PRN (22:58)
[2019-05-17] MEDS ORDERED: Naloxone 0.4 MG/ML INJ IVP PRN (22:58)
[2019-05-17] MEDS ORDERED: *HR* Dextrose 50 % in Water (Syg) 50 ML SYRINGE IVP PRN (22:58)
[2019-05-17] MEDS ORDERED: Dextrose Gel 15 GM/37.5 ML TUBE PO PRN ×2 (22:58)
[2019-05-17] MEDS ORDERED: Ipratropium/Albuterol Neb 3 ML IH SCH (23:00)
[2019-05-18 00:31] LABS: Bilirubin,Urine Negative (Negative); Blood,Urine Negative (Negative); Clarity,Urine Clear (Clear); Color,Urine Yellow (Yellow); Glucose,Urine (UA) Normal (Normal); Ketones,Urine Negative (Negative); Leukocyte Esterase,Urine Negative (Negative); Nitrite,Urine Negative (Negative); Protein,Urine Negative (Neg-Trace); Specific Gravity,Urine 1.021 (1.010-1.025); Urobilinogen,Urine Normal (Normal)
[2019-05-18] MEDS: Insulin LISPRO 300 UNITS/3 ML VIAL SQ SCH ×3 (01:36→12:02)
[2019-05-18 03:40] LABS: Basophils % 0.2 %; Hematocrit 30.6 % (35.3-44.9); Hemoglobin 9.9 g/dL (11.5-15.4); Immature Granulocytes % 0.8 % (0-4); Lymphocytes # 0.5 K/mcL (0.6-4.6); Lymphocytes % 5.2 %; Mean Corpuscular HGB Conc 32.4 g/dL (31.6-35.5); Mean Corpuscular Hemoglobin 26.7 pg (28.0-33.3); Mean Corpuscular Volume 82.5 fL (83.0-100.0); Mean Platelet Volume 10.3 fL (9.4-12.4); Monocytes # 0.1 K/mcL (0.0-1.3); Neutrophils # 9.7 K/mcL (1.6-8.9); Platelet Count 403 K/mcL (140-400); Red Blood Count 3.71 M/mcL (3.82-4.97); Red Cell Distribution Width 13.6 % (11.5-14.5); Segmented Neutrophils % 92.8 %; White Blood Count 10.5 K/mcL (4.3-11.1)
[2019-05-18 04:36] LABS: Alanine Aminotransferase 19 Units/L (7-52); Albumin 2.6 g/dL (3.5-5.7); Albumin/Globulin Ratio 0.6 (1.1-2.2); Alkaline Phosphatase 134 Units/L (34-104); Aspartate Amino Transferase 13 Units/L (13-39); BUN/Creatinine Ratio 30 (6-26); Bilirubin,Total 0.3 mg/dL (0.3-1.0); Blood Urea Nitrogen 15 mg/dL (8-23); Calcium 8.9 mg/dL (8.6-10.3); Carbon Dioxide 26 mEq/L (23-29); Chloride 102 mEq/L (98-107); Globulin 4.5 g/dL (2.4-3.5); Glucose 287 mg/dL (70-105); Magnesium 1.7 mg/dL (1.6-2.6); Osmolality,Calculated 289 (280-300); Phosphorous 3.8 mg/dL (2.7-4.5); Potassium 3.8 mEq/L (3.5-5.1); Sodium 134 mEq/L (136-145); Total Protein 7.1 g/dL (6.4-8.9); eGFR For African Americans > 60 (> 60); eGFR For Non-African Americans > 60 (> 60)
[2019-05-18] MEDS: methylPREDNISolone 125 MG/2 ML VIAL IVP SCH (05:51)
[2019-05-18] MEDS: Piperacillin/Tazobactam 3.375 GM in 0.9 % Sodium Chloride Mini Bag 100 ML IVPB SCH (05:51)
[2019-05-18] MEDS: Budesonide/Formoterol 160/4.5 1 PUFF INH IH SCH (08:05)
[2019-05-18] MEDS ORDERED: levoFLOXacin 750 MG/150 ML 750 MG/150 ML BAG IVPB SCH ×2 (09:00→16:00)
[2019-05-18 11:52] VITALS: BP 121/73
[2019-05-18] MEDS ORDERED: Azithromycin 500 MG in 0.9 % Sodium Chloride 250 ML IVPB SCH (14:00)
[2019-05-18] MEDS ORDERED: Piperacillin/Tazobactam 3.375 GM in 0.9 % Sodium Chloride Mini Bag 100 ML IVPB SCH (16:00)
[2019-05-18] MEDS ORDERED: Vancomycin 500 MG in 0.9 % Sodium Chloride Mini Bag 100 ML IVPB SCH (16:00)
[2019-05-18] MEDS ORDERED: MethylPREDNISolone 40 MG/ML VIAL IVP SCH (18:00)
[2019-05-19] MEDS ORDERED: MethylPREDNISolone 40 MG/ML VIAL IVP SCH (09:00)
== END 2019-05-18 15:21 | disposition home or self-care (01) ==
LOC: 2ANU 11:40 → EMEROOARM 11:40 → 2ANU 17:35 → SUATTDRO 20:45
PROVIDERS: ADMIT Internal Medicine; ATTEND Internal Medicine

== ENCOUNTER 2019-07-19 10:44 | Inpatient (IN) ==
[2019-07-19] MEDS ORDERED: 0.9 % Sodium Chloride 1,000 ML IVC ONE (11:04)
[2019-07-19 11:58] LABS: Basophils # 0.1 K/mcL (0.0-0.2); Basophils % 0.5 %; Eosinophils # 0.1 K/mcL (0.0-0.6); Eosinophils % 0.7 %; Hematocrit 29.5 % (35.3-44.9); Hemoglobin 9.1 g/dL (11.5-15.4); Immature Granulocytes % 0.5 % (0-4); Mean Corpuscular HGB Conc 30.8 g/dL (31.6-35.5); Mean Corpuscular Hemoglobin 24.9 pg (28.0-33.3); Mean Corpuscular Volume 80.6 fL (83.0-100.0); Mean Platelet Volume 10.8 fL (9.4-12.4); Monocytes # 1.3 K/mcL (0.0-1.3); Monocytes % 9.8 %; Neutrophils # 11.1 K/mcL (1.6-8.9); Platelet Count 398 K/mcL (140-400); Red Blood Count 3.66 M/mcL (3.82-4.97); Red Cell Distribution Width 14.7 % (11.5-14.5); Segmented Neutrophils % 81.5 %; White Blood Count 13.7 K/mcL (4.3-11.1)
[2019-07-19 12:15] LABS: BUN/Creatinine Ratio 32 (6-26); Blood Urea Nitrogen 14 mg/dL (8-23); Calcium 9.1 mg/dL (8.6-10.3); Carbon Dioxide 28 mEq/L (23-29); Chloride 96 mEq/L (98-107); Glucose 224 mg/dL (70-105); Magnesium 1.6 mg/dL (1.6-2.6); Osmolality,Calculated 277 (280-300); Phosphorous 3.4 mg/dL (2.7-4.5); Sodium 130 mEq/L (136-145); eGFR For African Americans > 60 (> 60); eGFR For Non-African Americans > 60 (> 60)
[2019-07-19] MEDS ORDERED: Metoprolol XL (24 HR) Succ 50 MG TAB.ER.24H PO STA (12:26)
[2019-07-19] MEDS ORDERED: *HR* Metoprolol 5 MG/5 ML VIAL IVP ONE (12:43)
[2019-07-19 12:45] LABS: Troponin I 0.07 ng/mL (< 0.04)
[2019-07-19 12:55] LABS: Thyroid Stimulating Hormone 1.836 mcIU/mL (0.340-5.600)
[2019-07-19] MEDS ORDERED: Naloxone 0.4 MG/ML INJ IVP PRN (14:08)
[2019-07-19] MEDS ORDERED: *HR* Dextrose 50 % in Water (Syg) 50 ML SYRINGE IVP PRN (14:10)
[2019-07-19] MEDS ORDERED: Dextrose Gel 15 GM/37.5 ML TUBE PO PRN ×2 (14:10)
[2019-07-19] MEDS ORDERED: D5% in Water 1,000 ML IVC PRN (14:10)
[2019-07-19] MEDS: Metoprolol XL (24 HR) Succ 50 MG TAB.ER.24H PO SCH (18:45)
[2019-07-19] MEDS: Insulin LISPRO 300 UNITS/3 ML VIAL SQ SCH (18:55)
[2019-07-19] MEDS ORDERED: Perflutren Lipid Microsphere 1.3 ML in 0.9 % Sodium Chloride 8.7 ML IVP ONE (21:08)
[2019-07-20] MEDS ORDERED: *HR* Enoxaparin 40 MG/0.4 ML SYRINGE SQ SCH (06:00)
[2019-07-20] MEDS: Insulin LISPRO 300 UNITS/3 ML VIAL SQ SCH ×3 (09:33→18:36)
[2019-07-20] MEDS: Metoprolol XL (24 HR) Succ 50 MG TAB.ER.24H PO SCH ×2 (09:35→12:51)
[2019-07-20] MEDS ORDERED: Furosemide 40 MG/4 ML VIAL IVP ONE (14:18)
[2019-07-20] MEDS ORDERED: Budesonide/Formoterol 160/4.5 1 PUFF INH IH PRN (17:03)
[2019-07-20] MEDS ORDERED: *HR* Metoprolol 5 MG/5 ML VIAL IVP STA (17:04)
[2019-07-20] MEDS ORDERED: *HR* Metoprolol 5 MG/5 ML VIAL IVP ONE (17:16)
[2019-07-20] MEDS ORDERED: Amiodarone Premix 150 MG/100 ML BAG IVPB ONE (17:35)
[2019-07-20] MEDS ORDERED: 0.9 % Sodium Chloride 1,000 ML ONE (17:39)
[2019-07-20] MEDS: *HR* Enoxaparin 60 MG/0.6 ML SYRINGE SQ SCH (17:47)
[2019-07-20] MEDS ORDERED: Amiodarone Premix 360 MG/200 ML BAG IVC ONE (19:45)
[2019-07-20] MEDS ORDERED: Apixaban 5 MG TABLET PO SCH (21:00)
[2019-07-21] MEDS: Amiodarone Premix 360 MG/200 ML BAG IVC SCH ×2 (02:36→15:39)
[2019-07-21 04:11] LABS: Basophils # 0.1 K/mcL (0.0-0.2); Basophils % 0.7 %; Eosinophils # 0.2 K/mcL (0.0-0.6); Eosinophils % 1.9 %; Hematocrit 28.9 % (35.3-44.9); Immature Granulocytes % 0.5 % (0-4); Lymphocytes # 1.5 K/mcL (0.6-4.6); Lymphocytes % 13.3 %; Mean Corpuscular HGB Conc 31.1 g/dL (31.6-35.5); Mean Corpuscular Hemoglobin 24.6 pg (28.0-33.3); Mean Platelet Volume 10.4 fL (9.4-12.4); Monocytes # 1.2 K/mcL (0.0-1.3); Monocytes % 10.9 %; Platelet Count 427 K/mcL (140-400); Red Blood Count 3.66 M/mcL (3.82-4.97); Red Cell Distribution Width 14.7 % (11.5-14.5); Segmented Neutrophils % 72.7 %
[2019-07-21 04:39] LABS: BUN/Creatinine Ratio 40 (6-26); Blood Urea Nitrogen 20 mg/dL (8-23); Calcium 8.6 mg/dL (8.6-10.3); Carbon Dioxide 27 mEq/L (23-29); Chloride 94 mEq/L (98-107); Glucose 232 mg/dL (70-105); Lactate Dehydrogenase 143 Units/L (140-271); Magnesium 1.8 mg/dL (1.6-2.6); Osmolality,Calculated 278 (280-300); Potassium 3.9 mEq/L (3.5-5.1); Sodium 129 mEq/L (136-145); Total Protein 7.7 g/dL (6.4-8.9); eGFR For African Americans > 60 (> 60); eGFR For Non-African Americans > 60 (> 60)
[2019-07-21] MEDS: *HR* Enoxaparin 60 MG/0.6 ML SYRINGE SQ SCH (05:37)
[2019-07-21] MEDS: Metoprolol XL (24 HR) Succ 50 MG TAB.ER.24H PO SCH (08:06)
[2019-07-21] MEDS: Insulin LISPRO 300 UNITS/3 ML VIAL SQ SCH ×3 (08:34→16:46)
[2019-07-21] MEDS ORDERED: Furosemide 40 MG/4 ML VIAL IVP ONE (16:50)
[2019-07-21] MEDS: Apixaban 5 MG TABLET PO SCH (21:32)
[2019-07-22 01:49] LABS: Hematocrit 29.2 % (35.3-44.9); Hemoglobin 9.1 g/dL (11.5-15.4); Mean Corpuscular HGB Conc 31.2 g/dL (31.6-35.5); Mean Corpuscular Hemoglobin 24.7 pg (28.0-33.3); Mean Corpuscular Volume 79.1 fL (83.0-100.0); Mean Platelet Volume 10.3 fL (9.4-12.4); Platelet Count 426 K/mcL (140-400); Red Blood Count 3.69 M/mcL (3.82-4.97); Red Cell Distribution Width 14.6 % (11.5-14.5); White Blood Count 12.9 K/mcL (4.3-11.1)
[2019-07-22 02:13] LABS: BUN/Creatinine Ratio 43 (6-26); Blood Urea Nitrogen 20 mg/dL (8-23); Calcium 8.7 mg/dL (8.6-10.3); Carbon Dioxide 29 mEq/L (23-29); Chloride 92 mEq/L (98-107); Glucose 238 mg/dL (70-105); Osmolality,Calculated 280 (280-300); Potassium 3.7 mEq/L (3.5-5.1); Sodium 130 mEq/L (136-145); eGFR For African Americans > 60 (> 60); eGFR For Non-African Americans > 60 (> 60)
[2019-07-22] MEDS: Amiodarone Premix 360 MG/200 ML BAG IVC SCH (03:08)
[2019-07-22] MEDS: Apixaban 5 MG TABLET PO SCH ×2 (08:37→21:25)
[2019-07-22] MEDS: Insulin LISPRO 300 UNITS/3 ML VIAL SQ SCH ×3 (09:23→17:33)
[2019-07-22] MEDS: *HR* Amiodarone 200 MG TABLET PO SCH ×2 (10:21→21:21)
[2019-07-23 04:34] LABS: Hematocrit 31.5 % (35.3-44.9); Hemoglobin 9.5 g/dL (11.5-15.4); Mean Corpuscular HGB Conc 30.2 g/dL (31.6-35.5); Mean Corpuscular Hemoglobin 24.1 pg (28.0-33.3); Mean Corpuscular Volume 79.9 fL (83.0-100.0); Mean Platelet Volume 10.6 fL (9.4-12.4); Platelet Count 417 K/mcL (140-400); Red Blood Count 3.94 M/mcL (3.82-4.97); Red Cell Distribution Width 14.6 % (11.5-14.5); White Blood Count 12.1 K/mcL (4.3-11.1)
[2019-07-23 04:58] LABS: BUN/Creatinine Ratio 43 (6-26); Blood Urea Nitrogen 20 mg/dL (8-23); Calcium 8.7 mg/dL (8.6-10.3); Carbon Dioxide 30 mEq/L (23-29); Chloride 94 mEq/L (98-107); Glucose 210 mg/dL (70-105); Osmolality,Calculated 279 (280-300); Potassium 3.9 mEq/L (3.5-5.1); Sodium 130 mEq/L (136-145); eGFR For African Americans > 60 (> 60); eGFR For Non-African Americans > 60 (> 60)
[2019-07-23] MEDS: Insulin LISPRO 300 UNITS/3 ML VIAL SQ SCH (07:33)
[2019-07-23] MEDS: *HR* Amiodarone 200 MG TABLET PO SCH (07:34)
[2019-07-23] MEDS: Apixaban 5 MG TABLET PO SCH (07:34)
[2019-07-23 07:36] VITALS: BP 109/64
[2019-07-23] MEDS ORDERED: Furosemide 20 MG TABLET PO SCH (09:00)
== END 2019-07-23 11:21 | disposition home or self-care (01) | DRG 309 ==
LOC: EMEROOARM 10:44 → 2NENU 14:08 → SUATTDRO 14:35 → 2NENU 16:15 → 2NNU 07-20 19:58
PROVIDERS: ADMIT Internal Medicine; ATTEND Internal Medicine

== ENCOUNTER 2019-09-23 07:44 | Inpatient (IN) ==
[2019-09-23] MEDS ORDERED: MethylPREDNISolone 40 MG/ML VIAL IVP ONE (08:00)
[2019-09-23] MEDS ORDERED: Ipratropium/Albuterol Neb 3 ML IH STA (08:00)
[2019-09-23] MEDS ORDERED: methylPREDNISolone 125 MG/2 ML VIAL IVP STA (08:10)
[2019-09-23] MEDS ORDERED: 0.9 % Sodium Chloride 500 ML IVC STA ×2 (08:14→09:49)
[2019-09-23 08:34] LABS: Hemoglobin 9.4 g/dL (11.5-15.4)
[2019-09-23 08:36] LABS: Hematocrit 31.2 % (35.3-44.9); Mean Corpuscular HGB Conc 30.1 g/dL (31.6-35.5); Mean Corpuscular Hemoglobin 24.2 pg (28.0-33.3); Mean Corpuscular Volume 80.4 fL (83.0-100.0); Platelet Count 448 K/mcL (140-400); Red Blood Count 3.88 M/mcL (3.82-4.97); Red Cell Distribution Width 16.6 % (11.5-14.5)
[2019-09-23 08:40] LABS: INR 2.2; Prothrombin Time 25.5 Seconds (9.4-12.1)
[2019-09-23 08:43] LABS: Activated Partial Thrombo Time 32.6 Seconds (26.0-36.0)
[2019-09-23] MEDS ORDERED: Piperacillin/Tazobactam 3.375 GM in 0.9 % Sodium Chloride Mini Bag 100 ML IVPB ONE (08:43)
[2019-09-23] MEDS ORDERED: Azithromycin 500 MG in 0.9 % Sodium Chloride 250 ML IVPB ONE (08:45)
[2019-09-23 08:50] LABS: White Blood Count 31.1 K/mcL (4.3-11.1)
[2019-09-23 09:00] LABS: Alanine Aminotransferase 32 Units/L (7-52); Albumin 2.7 g/dL (3.5-5.7); Albumin/Globulin Ratio 0.5 (1.1-2.2); Alkaline Phosphatase 212 Units/L (34-104); Aspartate Amino Transferase 25 Units/L (13-39); BUN/Creatinine Ratio 42 (6-26); Bilirubin,Indirect 0.3 mg/dL (0.0-1.0); Bilirubin,Total 0.3 mg/dL (0.3-1.0); Blood Urea Nitrogen 26 mg/dL (8-23); C-Reactive Protein > 300 mg/L (Less than 10); Calcium 8.9 mg/dL (8.6-10.3); Carbon Dioxide 24 mEq/L (23-29); Chloride 90 mEq/L (98-107); Globulin 5.2 g/dL (2.4-3.5); Glucose 280 mg/dL (70-105); Lactate Dehydrogenase 223 Units/L (140-271); Osmolality,Calculated 279 (280-300); Phosphorous 4.4 mg/dL (2.7-4.5); Potassium 4.8 mEq/L (3.5-5.1); Sodium 127 mEq/L (136-145); Total Protein 7.9 g/dL (6.4-8.9); Troponin I 0.04 ng/mL (< 0.04); eGFR For African Americans > 60 (> 60); eGFR For Non-African Americans > 60 (> 60)
[2019-09-23] MEDS ORDERED: 0.9 % Sodium Chloride 1,000 ML ONE (09:03)
[2019-09-23 09:04] LABS: Fibrinogen > 1000 mg/dL (169-393)
[2019-09-23 09:18] LABS: Ferritin > 1500 ng/mL (10-120)
[2019-09-23 09:19] LABS: Lymphocytes # 3.7 K/mcL (0.6-4.6); Monocytes # 2.5 K/mcL (0.0-1.3); Neutrophils # 24.9 K/mcL (1.6-8.9); Reactive Lymphocytes Present (Not Present); Toxic Granulation Present (Not Present)
[2019-09-23 09:20] LABS: Anisocytosis 1+ (Not Present)
[2019-09-23] MEDS ORDERED: Isovue-370 500 ML BOTTLE IVP ONE (09:30)
[2019-09-23] MEDS ORDERED: 0.9 % Sodium Chloride 1,000 ML IVC STA (09:50)
[2019-09-23] MEDS: FentaNYL (PF) 1,000 MCG in 0.9 % Sodium Chloride 80 ML IVC SCH (10:26)
[2019-09-23 11:56] LABS: ABG Base Excess 1 mEq/L (-2 to 3); ABG HCO3 27 mEq/L (21-27); ABG Oxygen Saturation 95 % (95-98); ABG PCO2 53 mmHg (35-45); ABG PH 7.32 pH Units (7.32-7.45); ABG PO2 82 mmHg (85-104); ABG TCO2 29 mEq/L (20-26); Blood Gas Modality ASSIST CONTROL; Blood Gas VT 450 cc
[2019-09-23] MEDS ORDERED: Naloxone 0.4 MG/ML INJ IVP PRN (11:57)
[2019-09-23] MEDS ORDERED: Artificial Tears SOLN 15 ML BOTTLE BOTH EYES PRN (11:57)
[2019-09-23] MEDS ORDERED: 0.9 % Sodium Chloride 1,000 ML IVC ONE (11:57)
[2019-09-23] MEDS ORDERED: Acetaminophen 325 MG TABLET PO PRN (11:57)
[2019-09-23] MEDS ORDERED: Vancomycin (wt based) 1,000 MG VIAL IVPB SCH (12:00)
[2019-09-23] MEDS ORDERED: *HR* Dextrose 50 % in Water (Syg) 50 ML SYRINGE IVP PRN (12:05)
[2019-09-23] MEDS ORDERED: Dextrose Gel 15 GM/37.5 ML TUBE PO PRN ×2 (12:05)
[2019-09-23] MEDS ORDERED: D5% in Water 1,000 ML IVC PRN (12:05)
[2019-09-23] MEDS ORDERED: *HR* Rocuronium Bromide 100 MG/10 ML VIAL IVC ONE (13:22)
[2019-09-23] MEDS ORDERED: *HR* Etomidate 20 MG/10 ML AMPUL IVP ONE (13:22)
[2019-09-23] MEDS: Insulin LISPRO 300 UNITS/3 ML VIAL SQ SCH ×3 (13:41→20:27)
[2019-09-23] MEDS: Artificial Tears SOLN 15 ML BOTTLE BOTH EYES SCH ×3 (13:53→20:27)
[2019-09-23] MEDS: Norepinephrine 4 MG in 0.9 % Sodium Chloride 250 ML IVC SCH ×2 (15:16→22:30)
[2019-09-23] MEDS: Dexmedetomidine HCl 400 MCG/100 ML MLS IVC SCH (16:08)
[2019-09-23] MEDS: Scopolamine Patch 1.5 MG PATCH.TD72 TD SCH (16:19)
[2019-09-23] MEDS: Doxycycline 100 MG in 0.9 % Sodium Chloride Mini Bag 100 ML IVPB SCH (17:48)
[2019-09-23] MEDS: Piperacillin/Tazobactam 3.375 GM in 0.9 % Sodium Chloride Mini Bag 100 ML IVPB SCH (17:49)
[2019-09-23] MEDS: MethylPREDNISolone 40 MG/ML VIAL IVP SCH (17:49)
[2019-09-23] MEDS: *HR* Heparin 5,000 UNIT/ML VIAL SQ SCH (17:49)
[2019-09-23] MEDS: Budesonide/Formoterol 160/4.5 1 PUFF INH IH SCH (19:54)
[2019-09-23] MEDS: Chlorhexidine Rinse 15 ML MOUTHWASH MM SCH (20:27)
[2019-09-23 22:10] LABS: Bilirubin,Urine Negative (Negative); Blood,Urine Trace (Negative); Clarity,Urine Clear (Clear); Color,Urine Dark Yellow (Yellow); Glucose,Urine (UA) Normal (Normal); Ketones,Urine Trace mg/dL (Negative); Leukocyte Esterase,Urine Negative (Negative); Nitrite,Urine Negative (Negative); PH,Urine 5.5 pH Units (5.0-8.0); Protein,Urine 100 mg/dL (Neg-Trace); Specific Gravity,Urine > 1.030 (1.010-1.025); Urobilinogen,Urine Normal (Normal)
[2019-09-23 22:13] LABS: Bacteria,Urine None Seen per hpf (None-Few); Hyaline Casts,Urine Few per lpf (None-Few); RBC,Urine 15-30 per hpf (0-3); Squamous Epithelial Cell,Urine Many per lpf (None-Few); WBC,Urine 15-30 per hpf (0-3)
[2019-09-23 22:30] LABS: Renal Epithelial Cells,Urine Few per hpf (None-Few)
[2019-09-24] MEDS: Insulin LISPRO 300 UNITS/3 ML VIAL SQ SCH ×7 (01:21→23:44)
[2019-09-24] MEDS: Artificial Tears SOLN 15 ML BOTTLE BOTH EYES SCH ×7 (01:21→23:43)
[2019-09-24] MEDS: FentaNYL (PF) 1,000 MCG in 0.9 % Sodium Chloride 80 ML IVC SCH ×4 (01:38→23:01)
[2019-09-24] MEDS: Piperacillin/Tazobactam 3.375 GM in 0.9 % Sodium Chloride Mini Bag 100 ML IVPB SCH ×3 (02:26→17:39)
[2019-09-24] MEDS: Dexmedetomidine HCl 400 MCG/100 ML MLS IVC SCH ×2 (03:31→13:45)
[2019-09-24 03:40] LABS: Basophils % 0.1 %; Hemoglobin 8.4 g/dL (11.5-15.4); Lymphocytes % 5.2 %; Segmented Neutrophils % 91.6 %
[2019-09-24 03:42] LABS: Hematocrit 27.8 % (35.3-44.9); Immature Granulocytes % 0.8 % (0-4); Lymphocytes # 1.3 K/mcL (0.6-4.6); Mean Corpuscular HGB Conc 30.2 g/dL (31.6-35.5); Mean Corpuscular Hemoglobin 24.3 pg (28.0-33.3); Mean Corpuscular Volume 80.6 fL (83.0-100.0); Monocytes # 0.6 K/mcL (0.0-1.3); Monocytes % 2.3 %; Platelet Count 416 K/mcL (140-400); Red Blood Count 3.45 M/mcL (3.82-4.97); Red Cell Distribution Width 16.6 % (11.5-14.5); White Blood Count 24.4 K/mcL (4.3-11.1)
[2019-09-24 03:44] LABS: VBG Ionized Calcium 1.16 mmol/L (1.15-1.35)
[2019-09-24 03:49] LABS: Neutrophils # 22.4 K/mcL (1.6-8.9)
[2019-09-24 03:59] LABS: Alanine Aminotransferase 25 Units/L (7-52); Albumin 2.1 g/dL (3.5-5.7); Albumin/Globulin Ratio 0.5 (1.1-2.2); Alkaline Phosphatase 152 Units/L (34-104); Aspartate Amino Transferase 20 Units/L (13-39); BUN/Creatinine Ratio 48 (6-26); Bilirubin,Direct 0.3 mg/dL (0.0-0.2); Bilirubin,Indirect 0.2 mg/dL (0.0-1.0); Bilirubin,Total 0.5 mg/dL (0.3-1.0); Blood Urea Nitrogen 32 mg/dL (8-23); Calcium 8.4 mg/dL (8.6-10.3); Carbon Dioxide 23 mEq/L (23-29); Chloride 101 mEq/L (98-107); Globulin 4.4 g/dL (2.4-3.5); Glucose 198 mg/dL (70-105); Magnesium 2.1 mg/dL (1.6-2.6); Osmolality,Calculated 290 (280-300); Potassium 4.9 mEq/L (3.5-5.1); Sodium 134 mEq/L (136-145); Total Protein 6.5 g/dL (6.4-8.9); eGFR For African Americans > 60 (> 60); eGFR For Non-African Americans > 60 (> 60)
[2019-09-24] MEDS ORDERED: *HR* Metoprolol 5 MG/5 ML VIAL IVP ONE ×3 (04:00→04:15)
[2019-09-24 04:33] LABS: ABG Base Excess -2 mEq/L (-2 to 3); ABG HCO3 23 mEq/L (21-27); ABG Oxygen Saturation 95 % (95-98); ABG PCO2 37 mmHg (35-45); ABG PO2 77 mmHg (85-104); ABG TCO2 24 mEq/L (20-26); Blood Gas Modality AF; Blood Gas VT 450 cc
[2019-09-24] MEDS: Doxycycline 100 MG in 0.9 % Sodium Chloride Mini Bag 100 ML IVPB SCH ×2 (05:56→17:38)
[2019-09-24] MEDS: *HR* Heparin 5,000 UNIT/ML VIAL SQ SCH (05:56)
[2019-09-24] MEDS: MethylPREDNISolone 40 MG/ML VIAL IVP SCH ×2 (05:56→17:41)
[2019-09-24] MEDS: Norepinephrine 4 MG in 0.9 % Sodium Chloride 250 ML IVC SCH (07:02)
[2019-09-24] MEDS: Phenylephrine 10 MG in 0.9 % Sodium Chloride 250 ML IVC SCH ×2 (08:05→11:02)
[2019-09-24] MEDS: DilTIAZem 50 MG in 0.9 % Sodium Chloride 40 ML IVC SCH ×4 (08:20→21:19)
[2019-09-24] MEDS ORDERED: [UNRECOGNIZED DRUG - OTHER] GTUBE SCH (09:00)
[2019-09-24] MEDS ORDERED: ESOMEPRAZOLE MAGNESIUM 40 MG PO SCH (09:00)
[2019-09-24] MEDS: Budesonide/Formoterol 160/4.5 1 PUFF INH IH SCH ×2 (09:05→20:04)
[2019-09-24] MEDS ORDERED: *HR* Heparin 5,000 UNIT/ML VIAL IVP ONE (09:07)
[2019-09-24] MEDS ORDERED: Heparin 25,000 UNIT/250 ML D5W 25,000 UNIT/250 ML IV.SOLN IVC SCH (09:15)
[2019-09-24] MEDS: Pantoprazole 40 MG VIAL IVP SCH (09:23)
[2019-09-24] MEDS: Chlorhexidine Rinse 15 ML MOUTHWASH MM SCH ×2 (09:23→19:48)
[2019-09-24] MEDS: Heparin 25,000 UNIT/250 ML D5W 25,000 UNIT/250 ML IV.SOLN IVC SCH (11:17)
[2019-09-24 11:39] LABS: Hematocrit 27.3 % (35.3-44.9); Hemoglobin 8.1 g/dL (11.5-15.4); Heparin anti-factor XA UFH 0.56 IU/mL (0.30-0.70); INR 2.1; Mean Corpuscular HGB Conc 29.7 g/dL (31.6-35.5); Mean Corpuscular Hemoglobin 23.8 pg (28.0-33.3); Mean Corpuscular Volume 80.3 fL (83.0-100.0); Mean Platelet Volume 10.3 fL (9.4-12.4); Platelet Count 445 K/mcL (140-400); Prothrombin Time 23.5 Seconds (9.4-12.1); Red Cell Distribution Width 16.6 % (11.5-14.5); White Blood Count 21.2 K/mcL (4.3-11.1)
[2019-09-24] MEDS: Metoclopramide 10 MG/10 ML UD.LIQ GTUBE SCH ×2 (11:46→19:48)
[2019-09-24] MEDS: Phenylephrine 50 MG in 0.9 % Sodium Chloride 250 ML IVC SCH (14:09)
[2019-09-24] MEDS ORDERED: *HR* Heparin 5,000 UNIT/ML VIAL IVP PRN (15:00)
[2019-09-24 16:25] LABS: Appearance of Body Fluid Cloudy (Clear); Volume of Body Fluid 15 mL
[2019-09-25] MEDS: Dexmedetomidine HCl 400 MCG/100 ML MLS IVC SCH (01:02)
[2019-09-25] MEDS: Phenylephrine 50 MG in 0.9 % Sodium Chloride 250 ML IVC SCH (01:03)
[2019-09-25] MEDS: Piperacillin/Tazobactam 3.375 GM in 0.9 % Sodium Chloride Mini Bag 100 ML IVPB SCH ×3 (02:27→16:54)
[2019-09-25] MEDS: Metoclopramide 10 MG/10 ML UD.LIQ GTUBE SCH ×3 (02:28→19:53)
[2019-09-25] MEDS: Insulin LISPRO 300 UNITS/3 ML VIAL SQ SCH ×6 (04:24→23:54)
[2019-09-25] MEDS: Artificial Tears SOLN 15 ML BOTTLE BOTH EYES SCH ×6 (04:24→23:54)
[2019-09-25 04:30] LABS: ABG Base Excess 0 mEq/L (-2 to 3); ABG HCO3 25 mEq/L (21-27); ABG Oxygen Saturation 98 % (95-98); ABG PCO2 38 mmHg (35-45); ABG PH 7.42 pH Units (7.32-7.45); ABG PO2 97 mmHg (85-104); ABG TCO2 26 mEq/L (20-26); Blood Gas Modality ASSIST CONTROL; Blood Gas VT 450 cc
[2019-09-25 04:45] LABS: Hematocrit 28.1 % (35.3-44.9); Hemoglobin 8.6 g/dL (11.5-15.4); Mean Corpuscular HGB Conc 30.6 g/dL (31.6-35.5); Mean Corpuscular Hemoglobin 24.5 pg (28.0-33.3); Mean Corpuscular Volume 80.1 fL (83.0-100.0); Mean Platelet Volume 10.1 fL (9.4-12.4); Platelet Count 464 K/mcL (140-400); Red Blood Count 3.51 M/mcL (3.82-4.97); Red Cell Distribution Width 16.6 % (11.5-14.5)
[2019-09-25 04:50] LABS: White Blood Count 32.2 K/mcL (4.3-11.1)
[2019-09-25 05:01] LABS: BUN/Creatinine Ratio 53 (6-26); Blood Urea Nitrogen 35 mg/dL (8-23); Calcium 8.6 mg/dL (8.6-10.3); Carbon Dioxide 23 mEq/L (23-29); Chloride 102 mEq/L (98-107); Glucose 185 mg/dL (70-105); Osmolality,Calculated 293 (280-300); Potassium 4.2 mEq/L (3.5-5.1); Sodium 135 mEq/L (136-145); eGFR For African Americans > 60 (> 60); eGFR For Non-African Americans > 60 (> 60)
[2019-09-25 05:19] LABS: Lymphocytes # 1.3 K/mcL (0.6-4.6); Neutrophils # 30.9 K/mcL (1.6-8.9)
[2019-09-25 05:20] LABS: Hypochromasia Present (Not Present); Platelet Estimate Normal (Normal); Toxic Granulation Present (Not Present)
[2019-09-25] MEDS: MethylPREDNISolone 40 MG/ML VIAL IVP SCH ×2 (06:12→16:54)
[2019-09-25] MEDS: Doxycycline 100 MG in 0.9 % Sodium Chloride Mini Bag 100 ML IVPB SCH ×2 (06:12→16:54)
[2019-09-25] MEDS: FentaNYL (PF) 1,000 MCG in 0.9 % Sodium Chloride 80 ML IVC SCH (06:20)
[2019-09-25] MEDS: Budesonide/Formoterol 160/4.5 1 PUFF INH IH SCH ×2 (07:41→22:10)
[2019-09-25] MEDS: *HR* Amiodarone 200 MG TABLET PO SCH (08:22)
[2019-09-25] MEDS: Chlorhexidine Rinse 15 ML MOUTHWASH MM SCH ×2 (08:22→19:53)
[2019-09-25] MEDS: Pantoprazole 40 MG VIAL IVP SCH (08:40)
[2019-09-25 11:14] LABS: Albumin 2.1 g/dL (3.5-5.7); Albumin/Globulin Ratio 0.6 (1.1-2.2); Bilirubin,Direct 0.2 mg/dL (0.0-0.2); Bilirubin,Indirect 0.1 mg/dL (0.0-1.0); Bilirubin,Total 0.3 mg/dL (0.3-1.0); Globulin 3.8 g/dL (2.4-3.5); Total Protein 5.9 g/dL (6.4-8.9)
[2019-09-25] MEDS ORDERED: Furosemide 40 MG/4 ML VIAL ONE (14:56)
[2019-09-25] MEDS ORDERED: Furosemide 40 MG/4 ML VIAL IVP ONE (14:58)
[2019-09-25] MEDS ORDERED: Levalbuterol Neb 1.25 MG/3 ML IH ONE (15:06)
[2019-09-25] MEDS ORDERED: Levalbuterol Neb 1.25 MG/3 ML ONE (15:15)
[2019-09-25] MEDS ORDERED: *HR* Metoprolol 5 MG/5 ML VIAL IVP ONE ×3 (15:25→17:45)
[2019-09-25] MEDS: Levalbuterol Neb 0.63 MG/3 ML IH SCH ×2 (15:26→22:10)
[2019-09-25 15:58] LABS: Hematocrit 29.7 % (35.3-44.9); Hemoglobin 8.9 g/dL (11.5-15.4); Mean Corpuscular Hemoglobin 24.5 pg (28.0-33.3); Mean Corpuscular Volume 81.6 fL (83.0-100.0); Mean Platelet Volume 10.1 fL (9.4-12.4); Platelet Count 461 K/mcL (140-400); Red Blood Count 3.64 M/mcL (3.82-4.97); Red Cell Distribution Width 16.6 % (11.5-14.5); White Blood Count 26.9 K/mcL (4.3-11.1)
[2019-09-25 16:13] LABS: BUN/Creatinine Ratio 63 (6-26); Blood Urea Nitrogen 38 mg/dL (8-23); Calcium 8.4 mg/dL (8.6-10.3); Carbon Dioxide 22 mEq/L (23-29); Chloride 104 mEq/L (98-107); Glucose 335 mg/dL (70-105); Osmolality,Calculated 302 (280-300); Potassium 3.8 mEq/L (3.5-5.1); Sodium 135 mEq/L (136-145); eGFR For African Americans > 60 (> 60); eGFR For Non-African Americans > 60 (> 60)
[2019-09-25 16:29] LABS: Lymphocytes # 2.7 K/mcL (0.6-4.6); Monocytes # 0.5 K/mcL (0.0-1.3); Neutrophils # 23.7 K/mcL (1.6-8.9)
[2019-09-25 16:30] LABS: Hypochromasia Present (Not Present); Toxic Granulation Present (Not Present)
[2019-09-25] MEDS: Heparin 25,000 UNIT/250 ML D5W 25,000 UNIT/250 ML IV.SOLN IVC SCH (19:51)
[2019-09-25 23:48] LABS: Heparin anti-factor XA UFH 0.37 IU/mL (0.30-0.70)
[2019-09-26 00:30] LABS: Activated Partial Thrombo Time 46.2 Seconds (26.0-36.0)
[2019-09-26] MEDS: *HR* Heparin 5,000 UNIT/ML VIAL IVP PRN (00:57)
[2019-09-26] MEDS: Piperacillin/Tazobactam 3.375 GM in 0.9 % Sodium Chloride Mini Bag 100 ML IVPB SCH ×3 (02:15→17:37)
[2019-09-26] MEDS: Metoclopramide 10 MG/10 ML UD.LIQ GTUBE SCH ×3 (03:50→19:54)
[2019-09-26] MEDS: Levalbuterol Neb 0.63 MG/3 ML IH SCH ×4 (03:53→21:11)
[2019-09-26] MEDS: Insulin LISPRO 300 UNITS/3 ML VIAL SQ SCH ×6 (04:04→23:46)
[2019-09-26] MEDS: Artificial Tears SOLN 15 ML BOTTLE BOTH EYES SCH ×6 (04:04→23:46)
[2019-09-26 05:18] LABS: Basophils % 0.1 %; Hemoglobin 8.7 g/dL (11.5-15.4)
[2019-09-26 05:19] LABS: Hematocrit 28.4 % (35.3-44.9); Immature Granulocytes % 1.9 % (0-4); Lymphocytes # 0.8 K/mcL (0.6-4.6); Lymphocytes % 3.3 %; Mean Corpuscular HGB Conc 30.6 g/dL (31.6-35.5); Mean Corpuscular Hemoglobin 24.2 pg (28.0-33.3); Mean Corpuscular Volume 79.1 fL (83.0-100.0); Mean Platelet Volume 10.1 fL (9.4-12.4); Monocytes # 0.9 K/mcL (0.0-1.3); Monocytes % 3.5 %; Neutrophils # 22.9 K/mcL (1.6-8.9); Platelet Count 397 K/mcL (140-400); Red Blood Count 3.59 M/mcL (3.82-4.97); Red Cell Distribution Width 16.6 % (11.5-14.5); Segmented Neutrophils % 91.2 %; White Blood Count 25.1 K/mcL (4.3-11.1)
[2019-09-26] MEDS: Heparin 25,000 UNIT/250 ML D5W 25,000 UNIT/250 ML IV.SOLN IVC SCH (05:23)
[2019-09-26] MEDS: MethylPREDNISolone 40 MG/ML VIAL IVP SCH ×2 (05:42→17:37)
[2019-09-26] MEDS: Doxycycline 100 MG in 0.9 % Sodium Chloride Mini Bag 100 ML IVPB SCH ×2 (05:42→17:35)
[2019-09-26 05:49] LABS: Toxic Granulation Present (Not Present)
[2019-09-26 05:50] LABS: Hypochromasia Present (Not Present); Platelet Estimate Normal (Normal)
[2019-09-26 06:00] LABS: BUN/Creatinine Ratio 62 (6-26); Blood Urea Nitrogen 32 mg/dL (8-23); Calcium 8.5 mg/dL (8.6-10.3); Carbon Dioxide 29 mEq/L (23-29); Chloride 104 mEq/L (98-107); Glucose 121 mg/dL (70-105); Osmolality,Calculated 300 (280-300); Potassium 2.7 mEq/L (3.5-5.1); Sodium 141 mEq/L (136-145); eGFR For African Americans > 60 (> 60); eGFR For Non-African Americans > 60 (> 60)
[2019-09-26] MEDS ORDERED: Potassium Chloride 40 MEQ, Lidocaine 1% 2 ML in 0.9 % Sodium Chloride 500 ML IVPB ONE (06:02)
[2019-09-26] MEDS ORDERED: *HR* Metoprolol 5 MG/5 ML VIAL IVP ONE ×3 (06:02→07:20)
[2019-09-26 06:37] LABS: Influenza A PCR Body Fluid NOT DETECTED; Influenza B PCR Body Fluid NOT DETECTED; RVP Body Fluid Source BAL LLL
[2019-09-26 06:57] LABS: Magnesium 1.6 mg/dL (1.6-2.6)
[2019-09-26] MEDS ORDERED: Furosemide 40 MG/4 ML VIAL IVP ONE (07:00)
[2019-09-26] MEDS ORDERED: Levalbuterol Neb 0.63 MG/3 ML IH ONE (07:00)
[2019-09-26] MEDS ORDERED: Furosemide 40 MG/4 ML VIAL ONE (07:00)
[2019-09-26] MEDS ORDERED: Levalbuterol Neb 0.63 MG/3 ML ONE (07:00)
[2019-09-26] MEDS ORDERED: Acetylcysteine 10% 2 ML INHSOL IH SCH (07:15)
[2019-09-26] MEDS ORDERED: Potassium Chloride Elixir 20 MEQ/15 ML UDC GTUBE ONE ×2 (07:19→17:14)
[2019-09-26] MEDS: *HR* Amiodarone 200 MG TABLET PO SCH (07:48)
[2019-09-26] MEDS: Pantoprazole 40 MG VIAL IVP SCH (07:48)
[2019-09-26] MEDS: DilTIAZem 50 MG in 0.9 % Sodium Chloride 40 ML IVC SCH ×3 (08:34→22:35)
[2019-09-26] MEDS: Budesonide/Formoterol 160/4.5 1 PUFF INH IH SCH ×2 (10:35→21:12)
[2019-09-26] MEDS: Acetylcysteine 10% 2 ML INHSOL IH SCH ×3 (10:35→21:11)
[2019-09-26] MEDS: Chlorhexidine Rinse 15 ML MOUTHWASH MM SCH ×2 (10:50→19:54)
[2019-09-26] MEDS: Norepinephrine 4 MG in 0.9 % Sodium Chloride 250 ML IVC SCH (12:05)
[2019-09-26 12:57] LABS: RSV PCR Body Fluid NOT DETECTED
[2019-09-26 15:42] LABS: BUN/Creatinine Ratio 53 (6-26); Blood Urea Nitrogen 35 mg/dL (8-23); Calcium 8.8 mg/dL (8.6-10.3); Carbon Dioxide 31 mEq/L (23-29); Chloride 105 mEq/L (98-107); Glucose 176 mg/dL (70-105); Osmolality,Calculated 310 (280-300); Potassium 2.9 mEq/L (3.5-5.1); Sodium 144 mEq/L (136-145); eGFR For African Americans > 60 (> 60); eGFR For Non-African Americans > 60 (> 60)
[2019-09-26] MEDS ORDERED: Vancomycin 750 MG VIAL ONE (17:28)
[2019-09-26] MEDS: Scopolamine Patch 1.5 MG PATCH.TD72 TD SCH (17:34)
[2019-09-26] MEDS: *HR* LORazepam 2 MG/ML VIAL IVP PRN (19:44)
[2019-09-27] MEDS: Piperacillin/Tazobactam 3.375 GM in 0.9 % Sodium Chloride Mini Bag 100 ML IVPB SCH ×3 (02:40→18:11)
[2019-09-27] MEDS: Metoclopramide 10 MG/10 ML UD.LIQ GTUBE SCH ×3 (03:56→18:11)
[2019-09-27] MEDS: *HR* LORazepam 2 MG/ML VIAL IVP PRN (03:57)
[2019-09-27] MEDS: Artificial Tears SOLN 15 ML BOTTLE BOTH EYES SCH ×2 (03:57→09:18)
[2019-09-27] MEDS: Levalbuterol Neb 0.63 MG/3 ML IH SCH ×4 (04:07→21:18)
[2019-09-27] MEDS: Acetylcysteine 10% 2 ML INHSOL IH SCH ×4 (04:07→21:19)
[2019-09-27 04:22] LABS: Basophils % 0.2 %; Hematocrit 26.5 % (35.3-44.9); Hemoglobin 8.1 g/dL (11.5-15.4); Immature Granulocytes % 2.1 % (0-4); Lymphocytes # 0.5 K/mcL (0.6-4.6); Lymphocytes % 2.6 %; Mean Corpuscular HGB Conc 30.6 g/dL (31.6-35.5); Mean Corpuscular Hemoglobin 24.8 pg (28.0-33.3); Mean Platelet Volume 10.1 fL (9.4-12.4); Monocytes # 0.7 K/mcL (0.0-1.3); Monocytes % 3.3 %; Neutrophils # 17.9 K/mcL (1.6-8.9); Platelet Count 343 K/mcL (140-400); Red Blood Count 3.27 M/mcL (3.82-4.97); Red Cell Distribution Width 16.7 % (11.5-14.5); Segmented Neutrophils % 91.8 %; White Blood Count 19.5 K/mcL (4.3-11.1)
[2019-09-27] MEDS: Insulin LISPRO 300 UNITS/3 ML VIAL SQ SCH ×6 (04:25→23:28)
[2019-09-27 04:42] LABS: BUN/Creatinine Ratio 55 (6-26); Blood Urea Nitrogen 35 mg/dL (8-23); Calcium 8.8 mg/dL (8.6-10.3); Carbon Dioxide 34 mEq/L (23-29); Chloride 107 mEq/L (98-107); Glucose 191 mg/dL (70-105); Osmolality,Calculated 317 (280-300); Potassium 2.9 mEq/L (3.5-5.1); Sodium 147 mEq/L (136-145); eGFR For African Americans > 60 (> 60); eGFR For Non-African Americans > 60 (> 60)
[2019-09-27] MEDS: Doxycycline 100 MG in 0.9 % Sodium Chloride Mini Bag 100 ML IVPB SCH ×2 (05:40→18:13)
[2019-09-27] MEDS: MethylPREDNISolone 40 MG/ML VIAL IVP SCH ×2 (05:41→18:10)
[2019-09-27] MEDS: *HR* Heparin 5,000 UNIT/ML VIAL IVP PRN (05:59)
[2019-09-27] MEDS: Chlorhexidine Rinse 15 ML MOUTHWASH MM SCH (09:17)
[2019-09-27] MEDS: *HR* Amiodarone 200 MG TABLET PO SCH (09:17)
[2019-09-27] MEDS: Pantoprazole 40 MG VIAL IVP SCH (09:17)
[2019-09-27] MEDS: DilTIAZem 50 MG in 0.9 % Sodium Chloride 40 ML IVC SCH ×2 (09:43→23:28)
[2019-09-27] MEDS ORDERED: Furosemide 40 MG/4 ML VIAL IVP ONE (10:23)
[2019-09-27] MEDS: Budesonide/Formoterol 160/4.5 1 PUFF INH IH SCH ×2 (11:01→21:19)
[2019-09-27] MEDS: Potassium Chloride Elixir 20 MEQ/15 ML UDC GTUBE SCH ×2 (11:16→20:08)
[2019-09-27] MEDS: Heparin 25,000 UNIT/250 ML D5W 25,000 UNIT/250 ML IV.SOLN IVC SCH (14:04)
[2019-09-27] MEDS ORDERED: 0.9 % Sodium Chloride 250 ML ONE (20:48)
[2019-09-28] MEDS: Piperacillin/Tazobactam 3.375 GM in 0.9 % Sodium Chloride Mini Bag 100 ML IVPB SCH ×2 (02:23→09:19)
[2019-09-28] MEDS: Acetylcysteine 10% 2 ML INHSOL IH SCH ×2 (03:01→09:36)
[2019-09-28] MEDS: Levalbuterol Neb 0.63 MG/3 ML IH SCH ×2 (03:01→09:35)
[2019-09-28] MEDS: Insulin LISPRO 300 UNITS/3 ML VIAL SQ SCH ×3 (03:39→12:47)
[2019-09-28] MEDS: Metoclopramide 10 MG/10 ML UD.LIQ GTUBE SCH ×2 (03:39→10:50)
[2019-09-28] MEDS: DilTIAZem 50 MG in 0.9 % Sodium Chloride 40 ML IVC SCH (03:53)
[2019-09-28 04:06] LABS: Basophils % 0.1 %; Hematocrit 28.4 % (35.3-44.9); Hemoglobin 8.5 g/dL (11.5-15.4); Immature Granulocytes % 1.6 % (0-4); Lymphocytes # 0.5 K/mcL (0.6-4.6); Lymphocytes % 2.5 %; Mean Corpuscular HGB Conc 29.9 g/dL (31.6-35.5); Mean Corpuscular Hemoglobin 24.4 pg (28.0-33.3); Mean Corpuscular Volume 81.4 fL (83.0-100.0); Mean Platelet Volume 10.5 fL (9.4-12.4); Monocytes # 0.6 K/mcL (0.0-1.3); Monocytes % 3.1 %; Neutrophils # 16.7 K/mcL (1.6-8.9); Nucleated Red Blood Cells 0.1 /100 WBC (0); Platelet Count 379 K/mcL (140-400); Red Blood Count 3.49 M/mcL (3.82-4.97); Red Cell Distribution Width 17.2 % (11.5-14.5); Segmented Neutrophils % 92.7 %
[2019-09-28 04:26] LABS: BUN/Creatinine Ratio 55 (6-26); Blood Urea Nitrogen 31 mg/dL (8-23); Carbon Dioxide 40 mEq/L (23-29); Chloride 104 mEq/L (98-107); Glucose 219 mg/dL (70-105); Osmolality,Calculated 323 (280-300); Potassium 2.7 mEq/L (3.5-5.1); Sodium 150 mEq/L (136-145); eGFR For African Americans > 60 (> 60); eGFR For Non-African Americans > 60 (> 60)
[2019-09-28] MEDS ORDERED: Potassium Chloride Elixir 20 MEQ/15 ML UDC GTUBE ONE (04:37)
[2019-09-28 04:51] LABS: Magnesium 1.7 mg/dL (1.6-2.6)
[2019-09-28] MEDS: Doxycycline 100 MG in 0.9 % Sodium Chloride Mini Bag 100 ML IVPB SCH (05:14)
[2019-09-28] MEDS: MethylPREDNISolone 40 MG/ML VIAL IVP SCH (05:14)
[2019-09-28] MEDS ORDERED: Aminoglycoside Consult 1 EACH MC ONE (08:49)
[2019-09-28] MEDS: Pantoprazole 40 MG VIAL IVP SCH (09:20)
[2019-09-28] MEDS: Potassium Chloride Elixir 20 MEQ/15 ML UDC GTUBE SCH (09:20)
[2019-09-28] MEDS: *HR* Amiodarone 200 MG TABLET PO SCH (09:20)
[2019-09-28] MEDS: Budesonide/Formoterol 160/4.5 1 PUFF INH IH SCH (09:36)
[2019-09-28] MEDS: *HR* LORazepam 2 MG/ML VIAL IVP PRN ×5 (12:45→22:41)
[2019-09-28] MEDS ORDERED: *HR* LORazepam 2 MG/ML VIAL IVP PRN (13:59)
[2019-09-28] MEDS ORDERED: Haloperidol Lactate 5 MG/ML VIAL IVP PRN (14:01)
[2019-09-28] MEDS ORDERED: Atropine Sulfate 1% 40 DROP/2 ML BOTTLE SL PRN (14:02)
[2019-09-28] MEDS ORDERED: Morphine Sulfate 2 MG/ML SYRINGE IVP PRN (14:05)
[2019-09-28] MEDS ORDERED: *HR* FentaNYL (PF) 100 MCG/2 ML VIAL IVP PRN ×2 (14:19→15:31)
[2019-09-28] MEDS ORDERED: Levalbuterol Neb 0.63 MG/3 ML IH PRN (14:27)
[2019-09-28] MEDS: Haloperidol Lactate 5 MG/ML VIAL IVP PRN ×3 (15:44→22:07)
[2019-09-28] MEDS: *HR* FentaNYL (PF) 100 MCG/2 ML VIAL IVP PRN ×5 (16:42→22:41)
[2019-09-28] MEDS ORDERED: Insulin DETEMIR 100 UNIT/ML X5UNITS SQ SCH (21:00)
[2019-09-28 21:03] VITALS: BP 125/77
[2019-09-28] MEDS: Atropine Sulfate 1% 40 DROP/2 ML BOTTLE SL PRN (21:08)
[2019-09-28] MEDS ORDERED: Scopolamine Patch 1.5 MG PATCH.TD72 TD SCH (22:21)
[2019-09-29] MEDS: *HR* LORazepam 2 MG/ML VIAL IVP PRN ×3 (00:52→07:54)
[2019-09-29] MEDS: *HR* FentaNYL (PF) 100 MCG/2 ML VIAL IVP PRN ×6 (00:52→08:23)
[2019-09-29] MEDS: Atropine Sulfate 1% 40 DROP/2 ML BOTTLE SL PRN ×2 (03:11→07:55)
[2019-09-29] MEDS: Haloperidol Lactate 5 MG/ML VIAL IVP PRN (05:38)
[2019-09-29] MEDS ORDERED: *HR* FentaNYL (PF) 100 MCG/2 ML VIAL IVP PRN (08:25)
[2019-09-29] MEDS ORDERED: Scopolamine Patch 1.5 MG PATCH.TD72 TD SCH (17:00)
== END 2019-09-29 08:50 | disposition expired | DRG 871 ==
LOC: ICNU 07:44 → EMEROOARM 07:44 → ICNU 11:40 → 2ANU 09-28 15:28
PROVIDERS: ADMIT Pediatrics; ATTEND Family Medicine